=== PATIENT | female | born 1985 | race Caucasian/White ===

== ENCOUNTER → 2018-10-18 | Outpatient (CLI) | payer OTHER, SELFPAY ==
[2014-08-25 03:30] VITALS: BMI 26.8
--- NOTE | 2018-10-18 14:06 | RAD_ITS ---
STUDY: X-RAY - RIGHT FOOT CLINICAL: Female, 33 years old. Pain TECHNIQUE: 3 view(s) of the foot. COMPARISON: None. FINDINGS: There is no evidence of fracture or dislocation. There are no significant degenerative changes. There are no radiodense foreign bodies. Dorsal foot soft tissue swelling is present. RAD/Foot min 3 Views IMPRESSION: No fracture or dislocation. Dorsal foot soft tissue swelling. Electronically Signed: Rai Massey, at 20:31 EDT Tel , Service support ,
== END | disposition home or self-care (01) ==
PROVIDERS: Family Provider Family Medicine; PCP Family Medicine; Referring Provider Family Medicine; Visit Provider Family Medicine
DX: M79.671 Pain in right foot (principal)
CPT/HCPCS: 73630

== ENCOUNTER → 2020-01-15 17:40 | Outpatient (CLI) | payer OTHER, SELFPAY ==
[2019-05-15 13:12] VITALS: BMI 26.8
== END ==
PROVIDERS: PCP Family Medicine; Referring Provider Family Medicine; Visit Provider Family Medicine
DX: B34.9 Viral infection, unspecified (principal)
CPT/HCPCS: 87635; U0003

== ENCOUNTER → 2020-10-21 10:21 | Outpatient (CLI) | payer OTHER, SELFPAY ==
[2019-05-15 13:12] VITALS: BMI 26.8
[2020-10-21 12:28] LABS: Absolute Lymphocyte Count 1.62 X10^3/uL (0.83-4.51); Absolute Neutrophil Count 4.1 X10^3/uL (2.0-7.7); Basophil# 0.03 X10^3/uL; Basophil% 0.5 % (0-1); Eosinophil# 0.15 X10^3/uL; Eosinophils% 2.3 % (0-5); Hematocrit 38.4 % (37-47); Lymphocyte # 1.62 X10^3/ul (0.83-4.51); Lymphocyte % 24.6 % (19-41); Mean Corp Hgb Conc 33.9 g/dL (32-36); Mean Corpuscular Hgb 28.4 pg (27.0-32.0); Mean Corpuscular Volume 83.8 fL (81-99); Mean Platelet Vol. 11.1 fl (6.2-12.0); Monocyte# 0.67 X10^3/uL; Monocyte% 10.2 % (0-10); NRBC Flagged by Analyzer 0 % (0-5); Neutrophil % 62.1 % (47-70); Platelet Count 330 K/mm3 (150-450); RBC Distribution Width CV 12.5 % (11.6-14.6); RBC Distribution Width SD 38.2 fl (35.1-43.9); Red Blood Count 4.58 M/mm3 (4.2-5.4); White Blood Count 6.6 K/mm3 (4.4-11.0)
[2020-10-21 13:02] LABS: ALB/GLOB Ratio 0.8 RATIO (0.9-2.4); AST(SGOT) 17 U/L (15-37); Alanine Aminotransfer ALT/SGPT 20 U/L (13-56); Albumin, Serum 3.7 g/dL (3.2-5.0); Alkaline Phosphatase 79 U/L (45-117); Anion Gap 9 (5-15); BUN 10 mg/dL (7-18); Chloride 106 mmol/L (98-107); Creatinine, Serum 0.71 mg/dL (0.55-1.02); EST Glomerular Filtration Rate 98 mL/min (>60); Est Glom Filt Rate - Afr Amer 118 mL/min (>60); Globulin 4.8 g/dL (2.2-4.2); Glucose 96 mg/dL (74-106); Lipase 96 U/L (73-393); Potassium 3.5 mmol/L (3.5-5.1); Protein, Total 8.5 g/dL (6.4-8.2); Sodium Level 138 mmol/L (136-145)
== END ==
PROVIDERS: PCP Family Medicine; Visit Provider Family Medicine
DX: R10.10 Upper abdominal pain, unspecified (principal)
CPT/HCPCS: 36415; 80053; 83690; 85025

== ENCOUNTER 2021-07-15 13:46 | Outpatient (RCR) | payer OTHER, SELFPAY ==
--- NOTE | 2021-08-30 18:30 | HP.PT.NRP ---
SANDRO HATHAWAY was seen in my office for initial evaluation on 07/15/21. The following Plan of Care was established for this patient: Initial Frequency: 1-2x /Week Initial Duration: 2-4 Weeks Patient/Client Instruction: Educate patient on: Condition, Plan of Care For the Purpose of:: To decrease pain, To increase tolerance to activity/condition/position Therapeutic Exercise to Include: Balance training For the Purpose of:: To increase tolerance to activity/condition/position This patient was last seen in our office 07/15/21. Pertinent comments regarding their Physical therapy will appear below: Pt seen one visit and treated with positional treatment and POC established. she cancelled the next visit and scheduled no further. At this point, it has been over 8 weeks and I will discontinue due to nonattendance. At this point I will be discontinuing this patient from physical therapy. I would be happy to see this patient again in the future if found appropriate by the physician. Thank you! Rajesh Mendez, DPT, OCS, CSCS Balance/Gait/Functional tests - Balance/Special Test Scores Functional Gait Assessment Score: 28 % Disability: 6.6700 Lower Extremity Functional Score: 58
== END 2021-07-15 19:00 | disposition home or self-care (01) ==
LOC: PT 13:46
PROVIDERS: PCP Family Medicine; Referring Provider Nurse Practitioner Family; Visit Provider Nurse Practitioner Family
DX: R42 Dizziness and giddiness (principal)
CPT/HCPCS: 97161

== ENCOUNTER → 2021-08-16 | Outpatient (CLI) | payer OTHER, SELFPAY ==
[2021-08-16 16:23] LABS: Absolute Lymphocyte Count 1.71 X10^3/uL (0.83-4.51); Absolute Neutrophil Count 5.1 X10^3/uL (2.0-7.7); Basophil# 0.04 X10^3/uL; Basophil% 0.5 % (0-1); Eosinophils% 1.3 % (0-5); Lymphocyte # 1.71 X10^3/ul (0.83-4.51); Lymphocyte % 22.1 % (19-41); Mean Corp Hgb Conc 33.3 g/dL (32-36); Mean Corpuscular Hgb 28.1 pg (27.0-32.0); Mean Corpuscular Volume 84.2 fL (81-99); Mean Platelet Vol. 10.6 fl (6.2-12.0); Monocyte# 0.74 X10^3/uL; Monocyte% 9.6 % (0-10); NRBC Flagged by Analyzer 0 % (0-5); Neutrophil # 5.12 X10^3/uL (2.7-7.7); Neutrophil % 66.2 % (47-70); Platelet Count 341 K/mm3 (150-450); RBC Distribution Width SD 36.2 fl (35.1-43.9); Red Blood Count 4.63 M/mm3 (4.2-5.4); White Blood Count 7.7 K/mm3 (4.4-11.0)
[2021-08-16 17:00] LABS: Erythrocyte Sedimentation Rate 34 mm/hr (0-30)
[2021-08-16 17:06] LABS: ALB/GLOB Ratio 0.7 RATIO (0.9-2.4); AST(SGOT) 16 U/L (15-37); Alanine Aminotransfer ALT/SGPT 16 U/L (13-56); Albumin, Serum 3.4 g/dL (3.2-5.0); Alkaline Phosphatase 74 U/L (45-117); Anion Gap 5 (5-15); BUN 9 mg/dL (7-18); BUN/Creat Ratio 11.2 RATIO (10-20); Calcium,Total 9.2 mg/dL (8.5-10.1); Chloride 109 mmol/L (98-107); EST Glomerular Filtration Rate 85 mL/min (>60); Est Glom Filt Rate - Afr Amer 103 mL/min (>60); Globulin 4.9 g/dL (2.2-4.2); Glucose 94 mg/dL (74-106); Potassium 3.4 mmol/L (3.5-5.1); Protein, Total 8.3 g/dL (6.4-8.2); Sodium Level 138 mmol/L (136-145)
[2021-08-18 14:10] LABS: Anti-Centromere B Ab <0.2 AI (0.0-0.9); Anti-Chromatin <0.2 AI (0.0-0.9); Anti-Jo <0.2 AI (0.0-0.9); Anti-Scleroderma-70 AB <0.2 AI (0.0-0.9); RNP Ab 0.2 AI (0.0-0.9); SJOGREN'S Anti-SS-A test < 0.2 AI (0.0-0.9); SJOGREN'S Anti-SS-B test < 0.2 AI (0.0-0.9); Smith Ab <0.2 AI (0.0-0.9)
[2021-08-18 17:07] LABS: Endomysial Antibody IgA Negative (Negative)
[2021-08-19 08:28] LABS: Anti-dsDNA Ab <1 IU/mL (0-9)
[2021-08-19 08:42] LABS: Immunoglobulin A 453 mg/dL (87-352); t-Transglutaminase IgA <2 U/mL (0-3)
== END | disposition home or self-care (01) ==
LOC: LAB 15:40
PROVIDERS: Referring Provider Nurse Practitioner Adult Health; Visit Provider Nurse Practitioner Adult Health
DX: R10.9 Unspecified abdominal pain (principal); R19.8 Other specified symptoms and signs involving the digestive system and abdomen
CPT/HCPCS: 36415; 80053; 82784; 83516; 85025; 85652; 86140; 86225; 86235; 86255

== ENCOUNTER 2021-09-20 10:53 | Day surgery (SDC) | payer OTHER, SELFPAY ==
[2021-09-20] VITALS (7 sets, daily range): BP systolic 86–111; BP diastolic 52–81; PULSE 49–80; RESP 16; TEMP 36.3–36.9; O2SAT 100; BMI 27.6
[2021-09-20 11:30] LABS: Internal QC Validated? YES +Cl - CLEAR BKGD; Pregnancy, Urine Negative Negative
[2021-09-20] MEDS: Lactated Ringers 1,000 ML 15 ML IV (11:39)
--- NOTE | 2021-09-20 12:00 | EGD_PTH ---
PATIENT: SANDRO HATHAWAY LOC: EN U#:[id number] AGE/SX: 36/F ROOM: RE09/20/[address]: Dr. Felipe Burk DO : 1985 BED: DIS: 09/20/2021 SPEC #: [id number] RECD: 09/20/21 14:52 STATUS: JENNIFFER VALERIA #: [id number] YOLANDA: 09/20/21 12:[address]: Felipe Burk DEPT: SURGICAL PATHOLOGY RECD BY: Lona Wilson ENTERED: 09/21/21 12:06 SP TYPE: EGD BIOPSY OT DR: Dr. Forest Nuno MD Tissues: A - Duodenum, NOS B - Pylorus C - Esophagus, NOS D - Gastric mucous membrane E - Ileum, NOS F - COLON BIOPSY Procedures: Special Stain Group II Surgery Specimen Level IV Alcian Blue/PAS (control) HEADER OPERATION: Colonoscopy, EGD ([facility]), with biopsies PRE-OP DIAGNOSIS: Alternating constipation and diarrhea, abdominal pain TISSUE SUBMITTED: A ? Duodenum biopsy, B ? Pylorus ulcer biopsy, C ? Distal esophagus biopsy, D ? Gastric body biopsy, E ? Terminal ileum biopsy, F ? Random colon biopsies MICROSCOPIC DIAGNOSIS A. Duodenum, biopsy: Fragments of duodenal mucosa, no pathologic diagnosis. B. Pylorus ulcer, biopsy: Mild to moderate gastritis. Focal intestinal metaplasia (goblet cell metaplasia). See microscopic description and comment. C. Distal esophagus, biopsy: Fragments of gastroesophageal mucosa with mild chronic inflammation. Intestinal metaplasia (goblet cell metaplasia) is not identified. See comment. D. Gastric body, biopsy: Mild gastritis. See microscopic description and comment. E. Terminal ileum, biopsy: A fragment of small intestinal mucosa, no pathologic diagnosis. F. Colon, random biopsy: Fragments of colonic mucosa, no pathologic diagnosis. SJ:sindhu 09/22/2021 COMMENT B. Alcian blue/PAS stain with matched control is used in the evaluation of the specimen. C. Alcian blue/PAS stain with matched control is used in the evaluation of the specimen. D. The results of immunohistochemistry for Helicobacter pylori will be reported separately ([id number]). MICROSCOPIC DESCRIPTION Slides are reviewed. B. The specimen shows fragments of gastric mucosa with chronic inflammatory cell infiltrates in the lamina propria consisting of lymphocytes and plasma cells, consistent with mild to moderate chronic gastritis. Focal intestinal metaplasia (goblet cell metaplasia) is also noted. D. The specimen shows fragments of gastric mucosa with chronic inflammatory cell infiltrates in the lamina propria consisting of lymphocytes and plasma cells, consistent with mild chronic gastritis. GROSS DESCRIPTION A - Received in fixative is one container labeled with the patient's name and designated duodenum biopsy. The specimen consists of multiple irregular fragments of light howell soft tissue that in aggregate measure 1.5 x 0.5 x 0.1 cm. The specimen is totally submitted in one cassette. B - Received in fixative is one container labeled with the patient's name and designated pylorus ulcer biopsy. The specimen consists of one irregular fragment of light howell soft tissue that measures 0.3 x 0.3 x 0.1 cm. The specimen is totally submitted in one cassette. C - Received in fixative is one container labeled with the patient's name and designated distal esophagus biopsy. The specimen consists of two irregular fragments of light howell soft tissue that in aggregate measure 0.8 x 0.3 x 0.1 cm. The specimen is totally submitted in one cassette. D - Received in fixative is one container labeled with the patient's name and designated gastric body biopsy. The specimen consists of two irregular fragments of light howell soft tissue that in aggregate measure 0.6 x 0.3 x 0.1 cm. The specimen is totally submitted in one cassette. E - Received in fixative is one container labeled with the patient's name and designated terminal ileum biopsy. The specimen consists of one irregular fragment of light howell soft tissue that measures 0.3 x 0.3 x 0.1 cm. The specimen is totally submitted in one cassette. F - Received in fixative is one container labeled with the patient's name and designated random colon biopsy. The specimen consists of multiple irregular fragments of light howell soft tissue that in aggregate measure 1 x 0.8 x 0.1 cm. The specimen is totally submitted in one cassette. / SJ:rg 09/21/2021 TC:3 CPT: 99980 x6, 54328 x2
--- NOTE | 2021-09-20 12:00 | IMM_PTH ---
PATIENT: SANDRO HATHAWAY LOC: [place]AL U#:[id number] AGE/SX: 36/F ROOM: RE09/20/[address]: Dr. Felipe Burk DO : 1985 BED: DIS: 09/20/2021 SPEC #: [id number] RECD: 09/21/21 09:45 STATUS: JENNIFFER RERomeo #: [id number] YOLANDA: 09/20/21 12:[address]: Felipe Burk DEPT: IMMUNOHISTOCHEMISTRY RECD BY: Octavia Maldonado ENTERED: 09/21/21 09:49 SP TYPE: IMMUNO OTHR DR: Dr. Forest Nuno MD Tissues: D - Stomach, NOS Procedures: H Pylori (initial) PHYSICIAN & INSTITUTION [place] [address] SPECIMEN INFORMATION: Tissue Source: D ? Gastric body biopsy Clinical Info: Constipation, diarrhea, abdominal pain Specimen Number: [id number] CPT code: 48990 METHODOLOGY: Deparaffinized sections of prefer/formalin-fixed tissue or PAP/DQ stained slides are incubated with monoclonal/polyclonal antibodies/oligonucleotide probes. Localization is made via biotin free immunoperoxidase method. Appropriate controls are performed and reacted as expected. Results on target cell population are indicated in the following table: RESULTS: ANTIBODY / CLONE RESULT Block D H Pylori (polyclonal) negative These tests were developed and their performance characteristics determined by [facility]. They may not have been cleared or approved by the U.S. Food and Drug Administration. The FDA has determined that such clearance or approval is not necessary. The above immunohistochemical/dualISH markers are ordered and reviewed by the Pathologist. INTERPRETATION: D. Gastric body, biopsy: Negative for Helicobacter pylori organisms. SJ:sindhu 09/22/2021
--- NOTE | 2021-09-20 12:07 | HP.PCM_ITS ---
History and Physical Date of Admission: 09/20/21 SANDRO HATHAWAY, is a 36 F who presents to the office today for IBS with alternating diarrhea and constipation Father of stomach and colon cancer, age 90 shortly after being diagnosed with cancer. Worries about cancer or IBD. Years of GI issues but significantly worse recently. Used to have more upper GI issues, GERD and difficulty swallowing. Occas heartburn now, no meds required. No nausea or vomiting. Currently no dysphagia. Had been prescribed omeprazole yrs ago. Was diagnosed clinically with ulcers after having dark tarry stools, many yrs ago. Past several years she has more bowel issues. Right now alternating every few days between diarrhea and constipation. Now in diarrhea phase, watery w/o any form. Can have multiple bouts of diarrhea per day, has accidents, keeps extra clothes in her car. No nocturnal diarrhea. She has lost 20 lbs in 6 mos unintentionally. Tried FODMAP diet w/ temporary improvement, but there is no predictability with what foods may bother her. But never feels like bowels completely evacuate, even when she has diarrhea. Constipation can last for weeks, can go 2-3 wks w/o BM, needs milk of magnesia, has hard rabbit pellets, has to strain. Benefiber used to be very effective. Hasn't tried dulcolax, Miralax, colace, enema, suppository.? Gets pain across the lower abdomen, bloating--can be every day, occurs at least once a week, lasts all day. No melena or hematochezia. Mostly eating toast, turkey sandwiches, Cheerios, Lactaid milk No prior EGD or colonoscopy. No prior CT. 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 Comorbidities include hx concussion, vertigo, anxiety, bipolar disorder, depression. ROS Const Constitutional: Positive for fatigue and weight change ENT ENT: Positive for difficulty swallowing Gastro GI: Positive for abdominal pain, bloating, change in bowel habits, constipation, cramping, diarrhea, heartburn, difficulty swallowing, Blood in stool, loose stools, Black,tarry stools and nausea/dyspepsia; No belching, change in stool character, coffee ground emesis, feeling full early, excessive flatus, incontinent of stools, Vomiting blood/hematemesis, pain with swallowing, vomiting or other Musc Musculoskeletal: Positive for joint pain, back pain, joint swelling, stiffness and sciatica Skin Skin: No yellowing of the eye or itchy eyes Psych Psychiatric: Positive for anxiety, Positive for depression, Positive for Behavioral Problems and Positive for hyperactivity Endo Endocrine: Positive for fatigue and weight change Aller/Imm Allergy/Immunologic: No itchy eyes Michael/Lymp Hematologic/Lymphatic: No easy bleeding or easy bruising Exam Const General: cooperative, comfortable, well developed and well groomed Eyes General: appearance normal, both eyes and all related structures Neck Neck: normal visual inspection Resp Effort & Inspection: normal respiratory effort GI Inspection: normal to inspection Palpation: soft, no hepatosplenomegaly, no masses and tender in the LUQ Skin General: no rashes or lesions noted Neuro Speech: speech normal Gait: normal gait Extrem General: no pedal edema Psych Mood: euthymic mood Affect: normal affect Quality Reporting Tobacco Screening ([facility]) Smoking Status: Never smoker Assessment and Plan Assessment and Plan (1) Alternating constipation and diarrhea: ?Status:?Acute (2) Abdominal pain: ?Status:?Acute ? ? ? Orders:?Orders: ? Comprehensive Metabolic Profil Today R19.8, R10.9 ? ? CRP Today R19.8, R10.9 ? ? CBC W/Diff, Automated Today R19.8, R10.9 ? ? Erythrocyte Sed Rate Today R19.8, R10.9 ? ? PAULA Comprehensive Panel Today R19.8, R10.9 ? ? Calprotectin, Stool Today R19.8, R10.9 ? ? Stool Lactoferrin/WBC Today R19.8, R10.9 ? ? Celiac Disease Profile Today R19.8, R10.9 ? ? Abdomen/Pelvis WITH Contrast Today R19.8, R10.9 ?Plan - Roseanne Alejandro MOTION PICTURE PROJECTIONIST, MOTION PICTURE PROJECTIONIST-C: 36 yr old female with alternating diarrhea and constipation, lower abdominal pain, LUQ tenderness on exam, weight loss, heartburn. Lower GI symptoms are most bothersome at this time. ?underlying constipation with overflow diarrhea. Samples of Trulance 3 mg qd. Biochemical w/u, stool tests for inflammation. DDx includes IBS, IBD, gastritis, peptic ulcer disease. CT abd pel w/ oral and IV to eval lower abd pain, bowel changes, weight loss. Plan Details Other Medications: ?Discontinued: ? docusate sodium (DOK) ?? Discontinued Reason:? Pt no longer taking 100 mg? PO BID 20 caps 0RF ? ? I have re-examined the patient. There are no clinical changes since date of exam.
--- NOTE | 2021-09-20 13:17 | OP.EGD_ITS ---
Patient Name: Bin Carrasco Procedure Date: 09/20/2021 12:09 PM Date of : 1985 Age: 36 Procedure: Upper GI endoscopy Indications: Epigastric abdominal pain, Dyspepsia, Heartburn Providers: Felipe Burk DO Medicines: Monitored Anesthesia Care Patient Profile: This is a 36 year old female. Refer to note in patient chart for documentation of history and physical. Patient has symptoms of acute epigastric abdominal pain and chronic heartburn. Complications: No immediate complications. Procedure: Pre-Anesthesia Assessment: - Prior to the procedure, a History and Physical was performed, and patient medications and allergies were reviewed. The patient is competent. The risks and benefits of the procedure and the sedation options and risks were discussed with the patient. All questions were answered and informed consent was obtained. Patient identification and proposed procedure were verified by the physician in the pre-procedure area. Mental Status Examination: alert and oriented. Airway Examination: normal oropharyngeal airway and neck mobility. Respiratory Examination: clear to auscultation. CV Examination: normal. Prophylactic Antibiotics: The patient does not require prophylactic antibiotics. Prior Anticoagulants: The patient has taken no previous anticoagulant or antiplatelet agents. ASA Grade Assessment: II - A patient with mild systemic disease. After reviewing the risks and benefits, the patient was deemed in satisfactory condition to undergo the procedure. The anesthesia plan was to use moderate sedation / analgesia (conscious sedation). Immediately prior to administration of medications, the patient was re-assessed for adequacy to receive sedatives. The heart rate, respiratory rate, oxygen saturations, blood pressure, adequacy of pulmonary ventilation, and response to care were monitored throughout the procedure. The physical status of the patient was re-assessed after the procedure. After obtaining informed consent, the endoscope was passed under direct vision. Throughout the procedure, the patient's blood pressure, pulse, and oxygen saturations were monitored continuously. The Colonoscope was introduced through the mouth, and advanced to the second part of duodenum. The upper GI endoscopy was accomplished without difficulty. The patient tolerated the procedure well. Scope In: 12:17:07 PM Scope Out: 12:24:27 PM Total Procedure Duration Time 0 hours 7 minutes 20 seconds Findings: The Z-line was irregular and was found 37 cm from the incisors. Patchy mildly erythematous mucosa without bleeding was found in the gastric body. Biopsies were taken with a cold forceps for histology. Verification of patient identification for the specimen was done. Estimated blood loss was minimal. One non-bleeding cratered gastric ulcer with no stigmata of bleeding was found at the pylorus. The lesion was 3 mm in largest dimension. Biopsies were taken with a cold forceps for histology. Verification of patient identification for the specimen was done. Estimated blood loss was minimal. There was also a 5 mm angioectasia seen in the gastric body. The second portion of the duodenum was normal. Biopsies were taken with a cold forceps for histology. Verification of patient identification for the specimen was done. Estimated blood loss was minimal. A single 5 mm no bleeding angioectasia was found in the gastric fundus. A mild Schatzki ring was found in the middle third of the esophagus. A guidewire was placed and the scope was withdrawn. Dilation was performed with a Savary dilator with no resistance at 36 Fr. Impression: - Z-line irregular, 37 cm from the incisors. - Erythematous mucosa in the gastric body. Biopsied. - Non-bleeding gastric ulcer with no stigmata of bleeding. Biopsied. - Normal second portion of the duodenum. Biopsied. Recommendation: - Written discharge instructions were provided to the patient. - The signs and symptoms of potential delayed complications were discussed with the patient. - Patient has a contact number available for emergencies. - Return to normal activities tomorrow. - Resume previous diet. - Continue present medications. - Await pathology results. Procedure Code(s): --- Professional --- 38546, Esophagogastroduodenoscopy, flexible, transoral; with insertion of guide wire followed by passage of dilator(s) through esophagus over guide wire 76619, 59,51, Esophagogastroduodenoscopy, flexible, transoral; with biopsy, single or multiple CPT copyright 2017 [employer]. All rights reserved. The codes documented in this report are preliminary and upon hr operations advisor review may be revised to meet current compliance requirements. Felipe Burk DO 09/20/2021 12:49:33 PM This report has been signed electronically. Number of Addenda: 1 Note Initiated On: 09/20/2021 12:09 PM Addendum Number: 1 Addendum Date: 12/21/2021 6:31:49 AM MAC was used as sedation for this procedure. Felipe Burk DO 12/21/2021 6:31:53 AM This report has been signed electronically.
--- NOTE | 2021-09-20 13:17 | OP.CCLET_ITS ---
12/21/2021 No Primary Care Physician Re : Upper GI endoscopy procedure for Bin Carrasco Dear Care Physician This procedure was performed on Monday, September 20, 2021. My impressions and recommendations are as follows: Impressions : - Z-line irregular, 37 cm from the incisors. - Erythematous mucosa in the gastric body. Biopsied. - Non-bleeding gastric ulcer with no stigmata of bleeding. Biopsied. - Normal second portion of the duodenum. Biopsied. Recommendations : - Written discharge instructions were provided to the patient. - The signs and symptoms of potential delayed complications were discussed with the patient. - Patient has a contact number available for emergencies. - Return to normal activities tomorrow. - Resume previous diet. - Continue present medications. - Await pathology results. My findings are described in the full procedure note, which is enclosed. If I can be of further assistance, please feel free to contact me at . Sincerely, Felipe Burk, 09/20/2021 12:49:33 PM This report has been signed electronically.
--- NOTE | 2021-09-20 13:17 | OP.CCLET_ITS ---
12/21/2021 No Primary Care Physician Re : Colonoscopy procedure for Bin Carrasco Dear Care Physician This procedure was performed on Monday, September 20, 2021. My impressions and recommendations are as follows: Impressions : - Congested mucosa in the sigmoid colon, in the transverse colon and in the ascending colon. Biopsied. - Congested mucosa in the distal ileum. Biopsied. Recommendations : - Discharge patient to home. - Resume previous diet. - Continue present medications. - Await pathology results. - Repeat colonoscopy is recommended for surveillance. The colonoscopy date will be determined after pathology results from today's exam become available for review. My findings are described in the full procedure note, which is enclosed. If I can be of further assistance, please feel free to contact me at . Sincerely, Felipe Burk, 09/20/2021 12:53:59 PM This report has been signed electronically.
--- NOTE | 2021-09-20 13:17 | OP.COLON_ITS ---
Patient Name: Bin Carrasco Procedure Date: 09/20/2021 12:25 PM Date of : 1985 Age: 36 Procedure: Colonoscopy Indications: Generalized abdominal pain, Family history of colon cancer in a first-degree relative Providers: Felipe Burk DO Medicines: Monitored Anesthesia Care Patient Profile: This is a 36 year old female. Refer to note in patient chart for documentation of history and physical. Patient has symptoms of acute epigastric abdominal pain and chronic heartburn. Last Colonoscopy: none. The patient's first colonoscopy is today. Complications: No immediate complications. Procedure: Pre-Anesthesia Assessment: - Prior to the procedure, a History and Physical was performed, and patient medications and allergies were reviewed. The patient is competent. The risks and benefits of the procedure and the sedation options and risks were discussed with the patient. All questions were answered and informed consent was obtained. Patient identification and proposed procedure were verified by the physician in the pre-procedure area. Mental Status Examination: alert and oriented. Airway Examination: normal oropharyngeal airway and neck mobility. Respiratory Examination: clear to auscultation. CV Examination: normal. Prophylactic Antibiotics: The patient does not require prophylactic antibiotics. Prior Anticoagulants: The patient has taken no previous anticoagulant or antiplatelet agents. ASA Grade Assessment: II - A patient with mild systemic disease. After reviewing the risks and benefits, the patient was deemed in satisfactory condition to undergo the procedure. The anesthesia plan was to use moderate sedation / analgesia (conscious sedation). Immediately prior to administration of medications, the patient was re-assessed for adequacy to receive sedatives. The heart rate, respiratory rate, oxygen saturations, blood pressure, adequacy of pulmonary ventilation, and response to care were monitored throughout the procedure. The physical status of the patient was re-assessed after the procedure. After I obtained informed consent, the scope was passed under direct vision. Throughout the procedure, the patient's blood pressure, pulse, and oxygen saturations were monitored continuously. The Colonoscope was introduced through the anus and advanced to the terminal ileum. The colonoscopy was performed without difficulty. The patient tolerated the procedure well. The quality of the bowel preparation was adequate. Scope In: 12:26:48 PM Scope Withdrawal Time 0 hours 11 minutes 27 seconds Scope Out: 12:41:06 PM Total Procedure Duration Time 0 hours 14 minutes 18 seconds Findings: The perianal and digital rectal examinations were normal. An area of mildly congested mucosa was found in the sigmoid colon, in the transverse colon and in the ascending colon. Biopsies were taken with a cold forceps for histology. Verification of patient identification for the specimen was done. Estimated blood loss was minimal. A patchy area of the distal ileum was congested. Biopsies were taken with a cold forceps for histology. Verification of patient identification for the specimen was done. Estimated blood loss was minimal. Impression: - Congested mucosa in the sigmoid colon, in the transverse colon and in the ascending colon. Biopsied. - Congested mucosa in the distal ileum. Biopsied. Recommendation: - Discharge patient to home. - Resume previous diet. - Continue present medications. - Await pathology results. - Repeat colonoscopy is recommended for surveillance. The colonoscopy date will be determined after pathology results from today's exam become available for review. Procedure Code(s): --- Professional --- 12069, Colonoscopy, flexible; with biopsy, single or multiple CPT copyright 2017 [employer]. All rights reserved. The codes documented in this report are preliminary and upon petroleum engineering teacher review may be revised to meet current compliance requirements. Felipe Burk DO 09/20/2021 12:53:59 PM This report has been signed electronically. Number of Addenda: 1 Note Initiated On: 09/20/2021 12:25 PM Addendum Number: 1 Addendum Date: 12/21/2021 6:32:00 AM MAC was used as sedation for this procedure. Felipe Burk DO 12/21/2021 6:32:04 AM This report has been signed electronically.
== END 2021-09-20 13:28 | disposition home or self-care (01) ==
LOC: EN 10:54 → AC 10:55
PROVIDERS: Anesthesiology; PCP Family Medicine; Referring Provider Family Medicine; Visit Provider Internal Medicine Gastroenterology
PROC: 0DJD8ZZ Inspection of Lower Intestinal Tract, Via Natural or Artificial Opening Endoscopic (ICD-10-PCS; CPT 45378; principal; 2021-09-20 11:55)
DX: K22.2 Esophageal obstruction (principal); F31.9 Bipolar disorder, unspecified; K29.50 Unspecified chronic gastritis without bleeding; K63.89 Other specified diseases of intestine; K31.89 Other diseases of stomach and duodenum; K25.9 Gastric ulcer, unspecified as acute or chronic, without hemorrhage or perforation; F41.9 Anxiety disorder, unspecified; K21.9 Gastro-esophageal reflux disease without esophagitis; G47.00 Insomnia, unspecified; K58.9 Irritable bowel syndrome, unspecified; Z79.899 Other long term (current) drug therapy; Z80.0 Family history of malignant neoplasm of digestive organs
CPT/HCPCS: 45380; 43239; 43248; 81025; 88305; 88313; 88342; J7120; J2405

== ENCOUNTER 2023-04-20 14:07 | Emergency (ER) | payer OTHER, SELFPAY ==
[2023-04-20 14:07] VITALS: BP 123/77; PULSE 85; RESP 16; TEMP 36.4; O2SAT 98; BMI 30.7
--- NOTE | 2023-04-20 14:37 | CT_ITS ---
STUDY: CT BRAIN WITHOUT CONTRAST REASON FOR EXAM: Female, 38 years old. Head trauma RADIATION DOSAGE (If Supplied By Facility): CTDIvol = ( 44.99 ) mGy, DLP = ( 762.36 ) mGycm TECHNIQUE: Transaxial CT imaging of the brain was performed without administration of intravenous contrast material. Individualized dose optimization techniques were used for this CT. COMPARISON: No relevant priors. FINDINGS: Mild degree of the soft tissue swelling overlying the left orbit. Normal calvarium. Normal size ventricles and extra-axial spaces for the patient''s age. Normal white matter tracts of the cerebral hemispheres. Normal basal ganglia and thalami. Normal brainstem. Normal cerebellum. There is no intracranial hemorrhage. There are no findings of an acute ischemic infarction. Minimal mucosal thickening along the lateral wall of the right maxillary sinus. CT/Brain/Head without Contrast IMPRESSION: Normal unenhanced CT scan of the brain. Mild degree of soft tissue swelling overlying the left orbit. Mucosal thickening along the lateral wall of the right maxillary sinus Electronically Signed: Kris Jones MD at 15:05 EST ,
--- NOTE | 2023-04-20 14:37 | CT_ITS ---
STUDY: CT FACIAL BONES WITHOUT CONTRAST REASON FOR EXAM: Female, 38 years old. Kicked in face by horse bruise left eye RADIATION DOSAGE (If Supplied By Facility): CTDIvol = ( 29.38 ) mGy, DLP = ( 525.42 ) mGycm TECHNIQUE: The patient was scanned in a multi detector CT scanner. Sagittal and coronal images were reconstructed. Individualized dose optimization techniques were used for this CT. COMPARISON: None. FINDINGS: Minimal degree of soft tissue swelling overlying the left orbit. Normal orbital reina and orbital contents. Mild degree of the nasal septal deviation towards the right side of the midline. There is hypertrophy of the inferior turbinate in the left nasal fossa. Normal facial bones. There is no demonstrated fracture. Findings suggestive of a small polyp or retention cyst at the base of the left maxillary sinus. Mild mucosal thickening at the base of the right maxillary sinus. CT/Sinus/Facial Bone IMPRESSION: No facial fracture is seen. Mucosal thickening of the maxillary sinuses with the nasal septal deviation towards the right side of the midline. Mild degree of soft tissue swelling overlying the left orbital region. Electronically Signed: Kris Jones MD at 15:07 EST ,
--- NOTE | 2023-04-20 14:48 | EX.ED.GENINJ ---
HPI History of Present Illness Chief Complaint: Head Injury Detail of Chief Complaint: Kicked in the face and left arm by her horse. Informant: patient Onset/Context/Timing Onset: Yesterday Mechanism/Context: Blunt Injury Location of pain/injuries: Left shoulder Quality of Pain: Dull and Aching Current Severity: Moderate Maximum Severity: Moderate Associated Symptoms Associated Symptoms: Positive for Loss of consciousness; Negative for Parasthesias, Weakness, Loss of function, Inability to ambulate or Amnesia Length of loss of consciousness: Unknown Narrative Narrative: 38-year-old female was putting her horse in the past yesterday when the horse kicked her in the left cheek below her left eye and left shoulder. She believes she stumbled backwards and lost consciousness for a brief period of time. She says she is having some dizziness with it. Discomfort in her left shoulder and left cheek. She has had a prior concussion before. She is on no blood thinners. She has not been vomiting. Prior similar symptoms: Yes Recent Illness/Hospitalization: No PFSH PFSH Medical History Acid reflux Alcohol use Alternating constipation and diarrhea Anxiety Bipolar disorder Black tarry stools Cough Depression Dysphagia History of ulceration Hx of Hypotension IBS (irritable bowel syndrome) Insomnia Loss of consciousness Migraine headache Non-smoker Post concussion syndrome Shortness of breath on exertion Stomach ulcer Vertigo Wears contact lenses Weight loss Home Medications trazodone 50 mg tablet 125 mg PO QHS 05/15/19 [History Last Taken Unknown] quetiapine 25 mg tablet 25 mg PO QHS 07/13/21 [History Last Taken Unknown] etonogestrel 0.12 mg-ethinyl estradiol 0.015 mg/24 hr vaginal ring (NuvaRing) 0.12 vag ring vaginal DAILY 09/16/21 [History Last Taken Unknown] omeprazole 40 mg capsule,delayed release 40 mg PO BID #180 caps 10/24/21 [Rx Last Taken Unknown] sucralfate 1 gram tablet 1 g PO QAC stomach ulcer #90 tabs 10/24/21 [Rx Last Taken Unknown] plecanatide 3 mg tablet (Trulance) 3 mg PO DAILY #90 tabs 03/10/22 [Rx Last Taken Unknown] benzonatate 200 mg capsule 200 mg PO TID PRN cough #20 caps 02/28/23 [Rx Last Taken Unknown] Allergy/AdvReac Type Severity Reaction Status Date / Time No Known Allergies Allergy Verified 04/20/23 14:07 Family History Mother Breast cancer Anemia Anxiety Hyperlipidemia Arthritis Hypertension Father Diabetes Colon cancer Hyperlipidemia Arthritis Hypertension Grandmother Anemia Arthritis Cancer Hypertension Social History Smoking Status: Never smoker alcohol intake: current ROS ROS ED ROS Narrative No recent illness. Review of Systems ROS Unobtainable: Denies due to encephalopathy Constitutional Constitutional ED: Denies chills or fever(s) Eyes Eyes: Denies blurry vision ENT ENT ED: Denies ear pain, rhinorrhea or sore throat Cardiovascular Cardiovascular: Denies chest pain, palpitations or racing heartbeat Respiratory/Chest Respiratory/Chest: Denies cough, dyspnea or dyspnea on exertion Gastrointestinal Gastrointestinal: Denies abdominal pain, constipation or diarrhea Genitourinary Genitourinary ED: Denies dysuria or hematuria Musculoskeletal Musculoskeletal: Denies arthralgias, back pain, myalgias or neck pain Integumentary Denies abscess, Abrasions or rash Neurologic Neurologic: Reports headache(s) Psychiatric Psychiatric: Denies anxiety or depression Endocrine Endocrinology: Denies cold intolerance Hematologic/Lymphatic Hematologic/Lymphatic: Denies easy bleeding Allergic/Immunologic Allergic/Immunologic ED: Denies mouth swelling EXAM Physical Exam Narrative Exam Narrative: 38-year-old female vital signs stable afebrile. HEENT exam pupils are round reactive light his motions are intact. She has a bruise to her left zygomatic arch where she was kicked by a horse. Left TM unremarkable. Jaw and teeth unremarkable able to open close her jaw. No trismus. Neck nontender full range of motion. Back and spine nontender. Lungs clear to auscultation bilaterally. Heart regular rate rhythm no murmur. Chest wall and ribs nontender. Abdomen soft nontender. Pelvic girdle intact. Moving all 4 extremities. Normal strength and sensation. Normal range of motion. She is of large bruise to her left anterior shoulder and proximal humerus. However she is full range of motion of the shoulder. Elbow, forearm, wrist and hand are nontender neurovascular intact. Normal radial pulse. 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 Right upper and both lower extremities are unremarkable. Neurologically she is awake and alert with no focal motor deficits. Const Vital Signs: 04/20/23 14:07 Temperature 97.6 F L Temperature Source Temporal Pulse Rate 85 Respiratory Rate 16 Blood Pressure 123/77 H Blood Pressure Mean 92 Pulse Ox 98 Oxygen Delivery Method Room Air Positive well nourished and well developed; Negative for cachectic, contractures or unkempt General Appearance ED: well developed and NAD; Negative for unkempt, cachectic or contractures Nutritional Appearance: Negative for cachectic HEENT Reports TM's clear HEENT Narrative: Bruising below her left eye on cheek. Mildly tender. trauma and tenderness; Negative for atraumatic Tympanic Membrane ED: Yes TM's clear Eyes PERRL and EOMs intact bilaterally Neck full ROM General: Negative for tenderness or other Chest Wall inspection of chest normal and palpation of chest normal Resp normal respiratory effort and clear to auscultation bilaterally Effort and Inspection: Negative for pain with movement Auscultation: Negative for rales, rhonchi or wheezes Cardio regular rhythm, S1 normal heart sound, S2 normal heart sound and no murmurs Jugular Venous Distention: Negative for other Palpation: Negative for palpable S3 Rate: regular rate; Negative for bradycardia or tachycardic Rhythm: Negative for abnormal rhythm GI normal to inspection, nondistended, normoactive bowel sounds, non-tender, non-distended and no masses Inspection: Negative for abdominal distention Auscultation: normoactive bowel sounds Palpation: soft; Negative for tender or guarding Bladder / Kidney Exam: No other Back/Spine normal to inspection and no thoracic nor lumbar tenderness General Back: Negative for CVA tenderness Thoracic Spine / Upper Back: Negative for thoracic spinal tenderness Extremity normal to inspection and full ROM Extremity Narrative: Bruise left shoulder proximal humerus. Full range of motion. No deformity. General Extremety ED: Yes tenderness; Negative for deformity or edema General Extremity: Negative for deformity or edema Neuro oriented x3, CN's II-XII intact bilaterally, moves all extremities, no focal motor deficits and no sensory deficits noted Wilfrido Coma Scale: document GCS findings Spontaneous Obeys Commands Oriented 15 Sensorium / Orientation: alert, oriented to person, oriented to place and oriented to time; Negative for orientation impaired or lethargic Motor Exam: strength 5/5 throughout; Negative for strength abnormal or muscle tone abnormal Psych mental status grossly normal and thought process normal Appearance: Negative for unkempt Attitude: No agitated Mood & Affect: Negative for depressed, anxious or tearful Skin no rashes or lesions noted, no wounds, skin turgor normal and no jaundice General Skin Exam: Negative for other Rashes: No rashes noted Trauma: Negative for abrasion Image ED - Body Diagram Man: 1. Left shoulder contusion. Bruising. Full range of motion. No deformity. MDM MDM MDM Narrative Medical decision making narrative: 38-year-old kicked in the face and left shoulder by a horse. CAT scan of the brain and facial bones to rule out intracranial injury and/or fracture. Left shoulder x-ray to rule out fracture. Repeat exam at 3:43 PM patient is doing well. Ice to all sore areas specifically her face and shoulder. Tylenol for pain. Motrin for pain and inflammation. Head injury instructions. Follow-up if not improving. Radiography Diagnostic Testing: Clinical Impression(s) from Imaging Studies Brain CT 04/20/23 14:37 IMPRESSION: Normal unenhanced CT scan of the brain. Mild degree of soft tissue swelling overlying the left orbit. Mucosal thickening along the lateral wall of the right maxillary sinus Electronically Signed: Kris Jones MD at 15:05 EST , Facial/Sinus 04/20/23 14:37 IMPRESSION: No facial fracture is seen. Mucosal thickening of the maxillary sinuses with the nasal septal deviation towards the right side of the midline. Mild degree of soft tissue swelling overlying the left orbital region. Electronically Signed: Kris Jones MD at 15:07 EST , Shoulder X-Ray 04/20/23 14:55 IMPRESSION: Minimal widening of the left acromioclavicular joint suggestive of a type I AC joint separation. Electronically Signed: Kris Jones MD at 15:08 EST , Left shoulder x-ray, 3 views, interpreted by myself and the radiologist. Clinically she has no signs of an AC separation or tenderness I do not think she has 1. The shoulder itself the humerus excetra there is no signs of fracture or dislocation. CAT scan of the face and brain shows soft tissue swelling but no fracture. No intracranial bleed. Discharge Plan Triage Chief Complaint: Head Injury ED Provider: Augustin Forman Dx/Rx/DC Orders Clinical Impression: Concussion, Closed head injury, Contusion of left shoulder Instructions: ED Concussion, ED Contusion, Upper Extremity Prescriptions: No Action quetiapine 25 mg tablet 25 mg PO QHS omeprazole 40 mg capsule,delayed release(DR/EC) 40 mg PO BID Qty: 180 0RF sucralfate 1 gram tablet 1 g PO QAC Qty: 90 0RF benzonatate 200 mg capsule 200 mg PO TID PRN (Reason: cough) Qty: 20 0RF trazodone 50 mg tablet 125 mg PO QHS Patient Comments: SLEEP etonogestrel-ethinyl estradiol [NuvaRing] 0.12-0.015 mg/24 hr Ring 0.12 vag ring VAGINAL DAILY Trulance 3 mg tablet 3 mg PO DAILY Qty: 90 11RF Primary Care Provider: Diana Bhat Referrals: Forest Nuno MD [Non-Staff] - Diana Bhat, [Primary Care Provider] - 1 Week if not improving Activity Restrictions/Additional Instructions: CAT scan of your brain and facial bones showed no fracture nor bleed. Ice to the soft tissue swelling of your face. Ice to your left shoulder. No broken bones or dislocations. Motrin for pain and swelling and Tylenol for pain. Follow-up with your doctor if not improving. Anytime you have a head injury or concussion you may have intermittent headaches, increasing sleep and trouble sleeping and nausea. This should all progressively improve over the next several weeks. Disposition Disposition: Home, Self Care
--- NOTE | 2023-04-20 14:55 | RAD_ITS ---
STUDY: X-RAY - LEFT SHOULDER REASON FOR EXAM: Female, 38 years old. Kicked by horse left shoulder TECHNIQUE: 4 view(s) of the shoulder. COMPARISON: None. FINDINGS: Normal glenohumeral articulation. There is minimal widening of the AC joint suggesting a Type I acromioclavicular joint separation. Normal acromion. Normal humeral head and visualized proximal humerus. The soft tissue structures are unremarkable. Normal visualized pulmonary apex. RAD/Shoulder min 2 Views IMPRESSION: Minimal widening of the left acromioclavicular joint suggestive of a type I AC joint separation. Electronically Signed: Kris Jones MD at 15:08 EST ,
== END 2023-04-20 15:55 | disposition home or self-care (01) ==
PROVIDERS: Emergency Provider Emergency Medicine; PCP Family Medicine; Visit Provider Emergency Medicine
DX: S06.0X0A Concussion without loss of consciousness, initial encounter (principal); S40.012A Contusion of left shoulder, initial encounter; W55.12XA Struck by horse, initial encounter
CPT/HCPCS: 70450; 70486; 73030; 99282

== ENCOUNTER 2023-10-17 06:00 | Day surgery (SDC) | payer OTHER, SELFPAY ==
[2023-10-17] VITALS (8 sets, daily range): BP systolic 93–142; BP diastolic 58–71; PULSE 62–95; RESP 16–17; TEMP 36.6–37; O2SAT 96–100; BMI 30.2
[2023-10-17 06:24] LABS: Internal QC Validated? YES +Cl - CLEAR BKGD; Pregnancy, Urine Negative Negative
[2023-10-17] MEDS: Lactated Ringers 1,000 ML 15 ML IV (06:27)
--- NOTE | 2023-10-17 06:38 | PRE.ANES_ITS ---
ASA Classification* ASA Classification ASA Classification: 2 Assessment & Plan Anesthesia* Anesthesia Assessment Anesthesia Assessment: Discussed sedation and/or anesthesia options, risks, benefits, and alternatives with patient/parents/legal guardian/POA. Questions invited. The patient/parents/legal guardian/POA seems to understand and agrees to proceed with anesthesia plan. Reviewed the physical assessment, medical history, allergy history and patient home medications list prior to surgery/procedure/anesthetic and documented any changes. Performed airway and anesthesia risk assessments. Anesthesia Type Anesthesia Type: MAC History Source History Obtained from:: Patient and Chart Anesthesia Focused Assessment* Temperature: 98.6 F Pulse Rate: 95 Blood Pressure: 142/71 Respiratory Rate: 17 Pulse Ox: 100 Oxygen Delivery Method: Room Air Airway Assessment Mouth opens: 2 cm Mallampati Score: IV Teeth Condition: Chipped/Broken (Patient has chipped molars on the left upper and lower.) Neck Range of motion (ROM): Full ROM Focused Labs Anesthesia Preop lab: CBC WBC 7.7 K/mm3 (4.4-11.0) 08/16/21 15:54 RBC 4.63 M/mm3 (4.2-5.4) 08/16/21 15:54 Hgb 13.0 g/dL (12.0-15.0) 08/16/21 15:54 Hct 39.0 % (37-47) 08/16/21 15:54 Plt Count 341 K/mm3 (150-450) 08/16/21 15:54 CHEMISTRY Potassium 3.4 mmol/L (3.5-5.1) L 08/16/21 15:54 Sodium 138 mmol/L (136-145) 08/16/21 15:54 BUN 9 mg/dL (7-18) 08/16/21 15:54 Creatinine 0.80 mg/dL (0.55-1.02) 08/16/21 15:54 Glucose 94 mg/dL (74-106) 08/16/21 15:54 COAG PT 13.8 SECONDS (11.7-14.9) 08/24/14 16:15 Urine Test Negative Negative 10/17/23 06:15 Pre-Assessment Diagnosis/Proposed Procedure Planned Operative Procedure(s): EGD Anesthesia History Anesthesia History - communications manager: Anesthesia History - communications manager Hx Hospitalization No 10/16/23 12:15 Any Problems With Anesthesia Yes: N,V 10/16/23 12:15 Cholinesterase deficiency No 10/16/23 12:15 You/Your Family Experience No 10/16/23 12:15 fever (hyperthermia) with Relationship Recent Exposure to Contagious No 10/17/23 06:27 Disease Does patient have nerve No 10/16/23 12:15 stimulator Patient instructed to have device shut off --Does patient have Pacemaker No 10/17/23 06:27 or ICD? When Was Last Pacemaker Check QUESTION #4 FULL TEXT: You/Your Family Experience fever (hyperthermia) with Anesthesia Last Oral Intake Last Oral intake: Last Oral Intake NPO since 19:00 10/17/23 06:27 Meds taken in AM with sips of No 10/17/23 06:27 water? Meds patient instructed to take am of surgery PONV PONV - communications manager: PONV - communications manager Female Yes 10/16/23 12:15 HX of Motion Sickness Yes 10/16/23 12:15 HX of N/V After Surgery Yes 10/16/23 12:15 Non-Smoker Yes 10/16/23 12:15 Duration of Surgery greater No 10/16/23 12:15 than 60 minutes Number of Risk Factors 4 10/16/23 12:15 PONV Score Severe Risk 10/16/23 12:15 Height & Weight Height & Weight: Anesthesia: Height & Weight Height 5 ft 4 in 10/17/23 06:27 Weight: 80 kg 10/17/23 06:27 Body Mass Index (BMI) 30.2 10/17/23 06:27 Respiratory Assessment Respiratory Assessment - communications manager: Respiratory Tract Infection Hx - communications manager Hx Respiratory Tract Infection No 10/16/23 12:15 STOP Sleep Apnea STOP Sleep Apnea - communications manager: STOP Sleep Apnea - communications manager Hx Hypertension No 10/16/23 12:15 Hx Sleep Apnea No 10/16/23 12:15 CPAP No 10/16/23 12:15 BIPAP No 10/16/23 12:15 Do you snore loudly (louder No 10/16/23 12:15 than talking or can be heard Do you often feel tired/ No 10/16/23 12:15 fatigued/ sleepy during daytime? Has anyone observed you stop No 10/16/23 12:15 breathing during sleep? STOP Results Negative 10/16/23 12:15 QUESTION #5 FULL TEXT : Do you snore loudly (louder than talking or can be heard through closed doors)? Tobacco Use History Tobacco Use History - communications manager: Tobacco Use History - communications manager Tobacco Use Smoking Status Never smoker 10/16/23 12:15 Hx Tobacco Use No 10/16/23 12:15 Years Smoking Packs Smoked per Day Smoking Cessation Date was within the last 15 years Hx Smoking Cessation Date Hx Smoking Cessation Counseling Hematologic Medial History Hematologic Hx - communications manager: Hematologic Medical Hx - slitter operator Hx of Blood Transfusion No 10/16/23 12:15 Hx of Transfusion in last 3 No 10/16/23 12:15 Months Date of Last Transfusion (if within last 3 months) Ever experience any problems No 10/16/23 12:15 with transfusion(s)? Specify any problems Hx of Preganancy in last 3 No 10/16/23 12:15 Months Nurse Filling Out Transfusion VCHRISTIN 10/16/23 12:15 & Questions: Date: 10/16/23 10/16/23 12:15 Time: 12:16 10/16/23 12:15 Patient unable to answer at this time (ie. confused, unrespo /Reproduction History /Reproductive History - communications manager: /Reproductive Hx- communications manager Hx Now No 10/16/23 12:15 Gestational Age (in weeks): EDC: Hx Hx Para Hx Section SAB No 10/16/23 12:15 Active Medications Active Medications: Current Medications Generic Name Dose Route Start Last Admin Trade Name Freq PRN Reason Stop Dose Admin Lactated Ringer's 1,000 mls @ 15 mls/hr 10/17/23 06:15 10/17/23 06:27 IV 15 mls/hr .Q48H GREGORIO Administration PFSH Medical History Anemia Gastric reflux History of echocardiogram Wears contact lenses Alcohol use Migraine headache Loss of consciousness History of ulceration Non-smoker Shortness of breath on exertion Hypotension Hx of Post concussion syndrome Abdominal pain Vertigo Bipolar disorder Insomnia IBS (irritable bowel syndrome) Stomach ulcer Acid reflux Anxiety Depression Home Medications ?Medication ?Instructions ?Recorded ?Last Taken ?Type trazodone 50 mg tablet 125 mg PO QHS 05/15/19 10/16/23 History etonogestrel 0.12 mg-ethinyl 0.12 vag ring vaginal DAILY 09/16/21 10/16/23 History estradiol 0.015 mg/24 hr vaginal ring (NuvaRing) famotidine 20 mg tablet 20 mg PO BID #60 tabs 05/10/23 10/16/23 Rx plecanatide 3 mg tablet (Trulance) 3 mg PO DAILY #90 tabs 05/10/23 10/16/23 Rx propranolol 10 mg tablet 10 mg PO BID PRN PRN anxiety 07/27/23 10/16/23 History Allergy/AdvReac Type Severity Reaction Status Date / Time No Known Allergies Allergy Verified 10/17/23 06:26 Family History Mother Breast cancer Anemia Anxiety Hyperlipidemia Arthritis Hypertension Father Diabetes Colon cancer Hyperlipidemia Arthritis Hypertension Grandmother Anemia Arthritis Cancer Hypertension Surgical History History of esophagogastroduodenoscopy (EGD) Social History Smoking Status: Never smoker alcohol intake: current Review of Systems (Anesthesia) ROS Narrative System reviewed and no additional complaints, except as documented.
--- NOTE | 2023-10-17 07:00 | EGD_PTH ---
PATIENT: SANDRO HATHAWAY LOC: EN U#:[id number] AGE/SX: 38/F ROOM: RE10/17/[address]: Dr. Felipe Burk DO : 1985 BED: DIS: 10/17/2023 SPEC #: [id number] RECD: 10/17/23 10:43 STATUS: JENNIFFER VALERIA #: [id number] YOLANDA: 10/17/23 07:[address]: Felipe Burk DEPT: SURGICAL PATHOLOGY RECD BY: Lona Wilson ENTERED: 10/17/23 11:45 SP TYPE: EGD BIOPSY LISSETTE DR: Mei Kathleen MD Tissues: Duodenum, NOS Procedures: Surgery Specimen Level IV HEADER OPERATION: EGD biopsy PRE-OP DIAGNOSIS: Acid reflux, stomach ulcer TISSUE SUBMITTED: Duodenum biopsy MICROSCOPIC DIAGNOSIS Duodenum, biopsy: No pathologic change. JUVENCIO/ 10/18/2023 MICROSCOPIC DESCRIPTION Slides are reviewed. GROSS DESCRIPTION Received in fixative is one container labeled with the patient's name and designated Duodenum biopsy. The specimen consists of multiple irregular fragments of light howell soft tissue that in aggregate measure 1.2 x 0.5 x 0.1 cm. The specimen is totally submitted in one cassette. JUVENCIO/ 10/17/2023 TC:5 CPT:66315
--- NOTE | 2023-10-17 07:09 | PCM.HP.BLA ---
History and Physical Date of Admission: 10/17/23 SANDRO HATHAWAY, is a 38 F who presents to the office today for Prior workup: ? CT abd/pel 6.8.15 mild right hydronephrosis; small hiatal hernia; small fundic tail diverticulum *BGI established 08.16.21 father diagnosed with stomach cancer approximately age 90 and . Current symptoms constipation alternating with watery loose stools; constant incomplete evacuation. Unintentional weight loss of 20lbs in the last 6 months. FODMAP diet somewhat helpful. Unable to identify trigger. ? Biochemical 08.16.21 CBC, CMP, CRP, PAULA comp, celiac, IgA (H453) without pertinent abnormality ? ESR H34, CRP H17.7 ? EGD/colonoscopy 09.20.21 EGD Raul ring, Savary 34F; gastritis; non-bleeding gastric ulcer; gastric angioectasia; pylorus metaplasia +. ? Colonoscopy congested mucosa. No path changes OV 8.8.22 PPI increase to BID, start sucralfate. Trulance samples effective, poor insurance coverage; Start Linzess 145 mcg samples. OV 10.3.22 Trulance most effective, continue. OV 2.22.24 LUQ pain with hunger and particular food triggers and indigestion. Otherwise feels she is doing well with use of Trulance with BM each day and complete evacuation. Omeprazole is being taken PRN as opposed to routine. ROS Const Constitutional: Positive for fatigue ENT ENT: No difficulty swallowing Gastro GI: Positive for abdominal pain, bloating, heartburn and excessive flatus; No belching, change in bowel habits, change in stool character, coffee ground emesis, constipation, cramping, diarrhea, difficulty swallowing, feeling full early, incontinent of stools, Vomiting blood/hematemesis, Blood in stool, loose stools, Black,tarry stools, nausea/dyspepsia, pain with swallowing, vomiting or other Musc Musculoskeletal: Positive for joint swelling and stiffness; No joint pain Skin Skin: No yellowing of the eye or itchy eyes Psych Psychiatric: Positive for anxiety, Positive for depression and Positive for inattentiveness Endo Endocrine: Positive for fatigue Aller/Imm Allergy/Immunologic: No itchy eyes Michael/Lymp Hematologic/Lymphatic: No easy bleeding or easy bruising Exam Const General: cooperative and healthy appearing Orientation: alert, awake and oriented x3 Quality Reporting Tobacco Screening ([facility] 138) Smoking Status: Never smoker Assessment and Plan Assessment and Plan (1) Irritable bowel syndrome with constipation: Status: Chronic Plan: continue trulance which is very effective for her (2) Stomach ulcer: Status: Chronic Plan: schedule f/u EGD, follow-up in office 2 weeks after that (3) Acid reflux: Status: Inactive Plan: Since omeprazole is not covered by her insurance we will put her on famotidine 20 mg p.o. twice daily Medications: New famotidine 20 mg PO BID 60 tabs 10RF Discontinued omeprazole Discontinued Reason: Order Completed 40 mg PO BID 180 caps 0RF sucralfate Discontinued Reason: Order Completed 1 g PO QAC 90 tabs 0RF stomach ulcer I have examined the patient and the H&P has been reviewed. There are no clinical changes since date of exam.
--- NOTE | 2023-10-17 07:30 | OP.EGD_ITS ---
Patient Name: Bin Carrasco Procedure Date: 10/17/2023 7:12 AM Date of : 1985 Age: 38 Procedure: Upper GI endoscopy Indications: Peptic ulcer Providers: Felipe Burk DO Patient Profile: This is a 38 year old female. Refer to note in patient chart for documentation of history and physical. Patient has symptoms of chronic epigastric abdominal pain. Complications: No immediate complications. Procedure: Pre-Anesthesia Assessment: - Prior to the procedure, a History and Physical was performed, and patient medications and allergies were reviewed. The risks and benefits of the procedure and the sedation options and risks were discussed with the patient. All questions were answered and informed consent was obtained. Patient identification and proposed procedure were verified by the physician in the pre-procedure area. Mental Status Examination: alert and oriented. Airway Examination: normal oropharyngeal airway and neck mobility. Respiratory Examination: clear to auscultation. CV Examination: normal. Prophylactic Antibiotics: The patient does not require prophylactic antibiotics. Prior Anticoagulants: The patient has taken no anticoagulant or antiplatelet agents. ASA Grade Assessment: II - A patient with mild systemic disease. After reviewing the risks and benefits, the patient was deemed in satisfactory condition to undergo the procedure. The anesthesia plan was to use monitored anesthesia care (MAC). Immediately prior to administration of medications, the patient was re-assessed for adequacy to receive sedatives. The heart rate, respiratory rate, oxygen saturations, blood pressure, adequacy of pulmonary ventilation, and response to care were monitored throughout the procedure. The physical status of the patient was re-assessed after the procedure. After obtaining informed consent, the endoscope was passed under direct vision. Throughout the procedure, the patient's blood pressure, pulse, and oxygen saturations were monitored continuously. The Endoscope was introduced through the mouth, and advanced to the second part of duodenum. The upper GI endoscopy was accomplished without difficulty. The patient tolerated the procedure well. Scope In: 7:18:32 AM Scope Out: 7:21:44 AM Total Procedure Duration Time 0 hours 3 minutes 12 seconds Findings: The examined esophagus was normal. A 5 mm non-bleeding diverticulum was found in the gastric fundus. No gross lesions were noted in the entire examined stomach. Patchy mild inflammation characterized by erosions and erythema was found in the duodenal bulb and in the first portion of the duodenum. Biopsies were taken with a cold forceps for histology. Verification of patient identification for the specimen was done. Estimated blood loss was minimal. Impression: - Normal esophagus. - Gastric diverticulum. - No gross lesions in the entire stomach. - Chronic duodenitis. Biopsied. Recommendation: - Discharge patient to home. - Resume previous diet. - Continue present medications. - Await pathology results. Procedure Code(s): --- Professional --- 51159, Esophagogastroduodenoscopy, flexible, transoral; with biopsy, single or multiple CPT copyright 2021 [employer]. All rights reserved. The codes documented in this report are preliminary and upon capacity planning manager review may be revised to meet current compliance requirements. Felipe Burk DO 10/17/2023 7:29:40 AM This report has been signed electronically. Number of Addenda: 0 Note Initiated On: 10/17/2023 7:12 AM
--- NOTE | 2023-10-17 07:30 | PCM.POST.ANE ---
Anesthesia: Postop Eval I Current Vital Signs Temperature: 98 F Pulse Rate: 72 Blood Pressure: 96/58 Respiratory Rate: 16 Pulse Ox: 96 Oxygen Delivery Method: Room Air Assessment Airway patent: Yes Spontaneous unlabored respirations: Yes Mental status: Asleep nausea: No Vomiting: No Anesthesia Complication: No Fluid Hydration Crystalloid volume administer (ml): 400 Total IV fluid infused: 400 Progress Note Anesthesia document: Postop Eval 1 completed: Yes
--- NOTE | 2023-10-17 08:35 | PCM.POSTANE2 ---
Anesthesia Postop Eval I Sum Postop Eval Completion status Anesthesia document: Postop Eval 1 completed: Yes Anesthesia Postop Eval I Summary Anesthesia Postop Eval I Summary: Anesthesia Postop Eval I: Assessment Summary Airway patent Yes 10/17/23 07:31 [email or web address] Spontaneous unlabored Yes 10/17/23 07:31 [email or web address] respirations Mental status Asleep 10/17/23 07:31 [email or web address] nausea No 10/17/23 07:31 [email or web address] Vomiting No 10/17/23 07:31 [email or web address] Anesthesia Postop Eval I: Fluid Summary Crystalloid volume administer 400 10/17/23 07:31 [email or web address] (ml) Colloids volume administered ( ml) Blood Product volume administered (ml) Total IV fluid infused 400 10/17/23 07:31 [email or web address] Anesthesia Postop Eval I: Summary Notes Anesthesia Complication No 10/17/23 07:31 [email or web address] Anesthesia Complication Comment: Post-operative progress note Anesthesia: Postop Eval II Evaluation Mental status: Awake Pain Level: 0 nausea: No Vomiting: No
== END 2023-10-17 08:06 | disposition home or self-care (01) ==
LOC: EN 06:05 → AC 06:06
PROVIDERS: Anesthesiology; PCP Family Medicine; Referring Provider Family Medicine; Visit Provider Internal Medicine Gastroenterology
PROC: 0DJ08ZZ Inspection of Upper Intestinal Tract, Via Natural or Artificial Opening Endoscopic (ICD-10-PCS; CPT 43235; principal; 2023-10-17 06:55)
DX: K29.80 Duodenitis without bleeding (principal); K31.4 Gastric diverticulum; K25.7 Chronic gastric ulcer without hemorrhage or perforation; K58.9 Irritable bowel syndrome, unspecified; K21.9 Gastro-esophageal reflux disease without esophagitis; Z79.899 Other long term (current) drug therapy
CPT/HCPCS: 43239; 81025; 88305; J7120; J2405

== ENCOUNTER 2024-10-28 13:52 | Emergency (ER) | payer OTHER, SELFPAY ==
[2024-10-28 13:53] VITALS: BP 144/84; PULSE 95; RESP 18; TEMP 36.8; O2SAT 96; BMI 26.1
--- NOTE | 2024-10-28 14:13 | EDS_ITS ---
HPI History of Present Illness Chief Complaint: Chest Pain [facility] Medical History Anemia Gastric reflux History of echocardiogram Wears contact lenses Alcohol use Migraine headache Loss of consciousness History of ulceration Non-smoker Shortness of breath on exertion Hypotension Hx of Post concussion syndrome Abdominal pain Vertigo Bipolar disorder Insomnia IBS (irritable bowel syndrome) Stomach ulcer Acid reflux Anxiety Depression Home Medications ?Medication ?Instructions ?Recorded ?Last Taken ?Type trazodone 50 mg tablet 125 mg PO QHS 05/15/1910/15 History etonogestrel 0.12 mg-ethinyl 0.12 vag ring vaginal JENNIFER LY 09/16/21 10/16/23 History estradiol 0.015 mg/24 hr vaginal ring (NuvaRing) famotidine 20 mg tablet 20 mg PO BID #60 tabs 10/16/23 Rx propranolol 10 mg tablet 10 mg PO BID PRN PRN anxiety 07/27/23 10/16/23 History plecanatide 3 mg tablet (Trulance) 3 mg PO DAILY #90 t abs 05/23/24 Unknown Rx Allergy/AdvReac Type Severity Reaction Status Date / Time No Known Allergies Allergy Verified 10/28/24 13:55 Family History Mother Breast cancer Anemia Anxiety Hyperlipidemia Arthritis Hypertension Father Diabetes Colon cancer Hyperlipidemia Arthritis Hypertension Grandmother Anemia Arthritis Cancer Hypertension Surgical History History of esophagogastroduodenoscopy (EGD) Social History Smoking Status: Never smoker alcohol intake: current EXAM Physical Exam Const Vital Signs: 10/28/24 13:53 10/28/24 14:12 Temperature 98.2 F Temperature Source Oral Pulse Rate 95 Respiratory Rate 18 Respiratory Effort Normal Non-Labored Blood Pressure 144/84 H Blood Pressure Mean 104 Pulse Ox 96 Oxygen Delivery Method Room Air Discharge Plan Triage Chief Complaint: Chest Pain Other Complaint: Upper Extremity Injury ED Provider: Rajesh Martinez Dx/Rx/DC Orders Prescriptions: No Action famotidine 20 mg tablet 20 mg PO BID Qty: 60 10RF trazodone 50 mg tablet 125 mg PO QHS Patient Comments: SLEEP etonogestrel-ethinyl estradiol [NuvaRing] 0.12-0.015 mg/24 hr Ring 0.12 vag ring VAGINAL DAILY propranolol 10 mg tablet 10 mg PO BID PRN PRN (Reason: anxiety) Trulance 3 mg tablet 3 mg PO DAILY Qty: 90 11RF Primary Care Provider: Mei Kathleen Referrals: Mei Kathleen MD [Primary Care Provider] - Print Language: Martiniquais
--- NOTE | 2024-10-28 14:13 | ED.VIS.CHEST ---
HPI History of Present Illness Chief Complaint: Chest Pain Informant: patient Onset/Context/Timing Onset: Days (5) Activity at onset: gradual Quality: Positive for Burning, Sharp and - (Pressure) Location: Left Chest and - (Lower EXTR right shoulder, right arm) Worsened By: Movement of Arm, Breathing and - (Certain positions and riding in a car) Relieved By: Nothing Associated Symptoms: Positive for Nausea, Vomiting, Dyspnea and Acid Reflux; Negative for Diaphoresis, Cough, Fever, Lightheadedness or Palpitations Narrative Narrative: Patient presents with chest pain that has been waxing and waning over the last 5 days. Patient states it is mainly over the right upper chest. Patient describes it as sharp and burning. Patient also admits to some pressure. Patient states her pain radiates down her right forearm to her forearm and wrist. Patient states it is worse with movement of her arm. Patient states it is worse with deep breathing. Patient reports it is worse with certain positions. Patient states that is also worse while riding in a car. Patient admits to some nausea and vomiting. Patient admits to some reflux symptoms. Patient elects to start dizziness. Patient states that the dizziness feels like it is a spinning sensation. CVD Risk Factors: Negative for Hypertension, Diabetes, Hypercholesterolemia, Family History 1' </=55 or Smoking PE Risk Factors: Negative for Recent Travel/Surgery, Recent Immobilization, Prior DVT or PE, Cancer or OCP + Smoking + >/=35 PFSH PFSH Medical History Anemia Gastric reflux History of echocardiogram Wears contact lenses Alcohol use Migraine headache Loss of consciousness History of ulceration Non-smoker Shortness of breath on exertion Hypotension Hx of Post concussion syndrome Abdominal pain Vertigo Bipolar disorder Insomnia IBS (irritable bowel syndrome) Stomach ulcer Acid reflux Anxiety Depression Home Medications ?Medication ?Instructions ?Recorded ?Last Taken ?Type trazodone 50 mg tablet 125 mg PO QHS 05/15/19 10/16/23 History etonogestrel 0.12 mg-ethinyl 0.12 vag ring vaginal DAILY 09/16/21 10/16/23 History estradiol 0.015 mg/24 hr vaginal ring (NuvaRing) famotidine 20 mg tablet 20 mg PO BID #60 tabs 05/10/23 10/16/23 Rx propranolol 10 mg tablet 10 mg PO BID PRN PRN anxiety 05/10/24 07/30/24 History plecanatide 3 mg tablet (Trulance) 3 mg PO DAILY #90 tabs 05/23/24 Unknown Rx hydrocodone-acetaminophen 5-325mg 1 tab PO Q6H PRN PRN Pain 3 days 10/28/24 Unknown Rx 5mg-325mg #10 TABLETS meloxicam 15 mg tablet 15 mg PO DAILY #10 tabs 10/28/24 Unknown Rx Allergy/AdvReac Type Severity Reaction Status Date / Time No Known Allergies Allergy Verified 10/28/24 13:55 Family History Mother Breast cancer Anemia Anxiety Hyperlipidemia Arthritis Hypertension Father Diabetes Colon cancer Hyperlipidemia Arthritis Hypertension Grandmother Anemia Arthritis Cancer Hypertension Surgical History History of esophagogastroduodenoscopy (EGD) Social History Smoking Status: Never smoker alcohol intake: current ROS ROS ED Constitutional Constitutional ED: Denies chills or fever(s) Eyes Eyes: Denies blurry vision or change in vision ENT ENT ED: Denies rhinorrhea or sore throat Cardiovascular Cardiovascular: Reports chest pain; Denies palpitations Respiratory/Chest Respiratory/Chest: Reports dyspnea; Denies cough Gastrointestinal Gastrointestinal: Reports nausea and vomiting; Denies abdominal pain Genitourinary Genitourinary ED: Denies dysuria or hematuria Musculoskeletal Musculoskeletal: Reports back pain and neck pain Integumentary Denies abscess or rash Neurologic Neurologic: Denies headache(s) or weakness Allergic/Immunologic Allergic/Immunologic ED: Denies mouth swelling or urticaria EXAM Physical Exam Const Vital Signs: 10/28/24 13:53 10/28/24 14:12 10/28/24 14:53 Temperature 98.2 F Temperature Source Oral Pulse Rate 95 90 Respiratory Rate 18 12 Respiratory Effort Normal Non-Labored Blood Pressure 144/84 H 143/104 H Blood Pressure Mean 104 117 Pulse Ox 96 99 Oxygen Delivery Method Room Air Room Air 10/28/24 15:00 10/28/24 15:00 10/28/24 16:00 Temperature Temperature Source Pulse Rate 73 Respiratory Rate 16 Respiratory Effort Blood Pressure 143/104 H 125/88 H Blood Pressure Mean 117 100 Pulse Ox 100 Oxygen Delivery Method Room Air Room Air 10/28/24 17:00 10/28/24 17:37 Temperature 98.2 F Temperature Source Pulse Rate 85 85 Respiratory Rate 13 13 Respiratory Effort Blood Pressure 121/78 H 121/78 H Blood Pressure Mean 92 92 Pulse Ox 100 Oxygen Delivery Method Positive well nourished and well developed General Appearance ED: well developed and NAD HEENT Reports moist mucous membranes Neck supple and no JVD Chest Wall Chest: tenderness rib and pectoral muscle Resp normal respiratory effort and clear to auscultation bilaterally Cardio regular rate and regular rhythm GI soft to palpation, non-tender and non-distended Extremity normal to inspection General Extremety ED: Negative for edema or tenderness General Extremity: Negative for edema Neuro oriented x3, CN's II-XII intact bilaterally and no sensory deficits noted Sensorium / Orientation: awake and alert Motor Exam: strength 5/5 throughout Psych mental status grossly normal Heart Score History: Slightly/Non-Suspicious ECG: Nonspecific Repolarization Age: </= 45 years Risk Factors: No Risk Factors Troponin: </= Normal Limit Score: 1 MDM MDM MDM Narrative Medical decision making narrative: Differential diagnosis includes cardiac dysrhythmia, cardiac ischemia, pneumonia, bronchitis, pulmonary embolism, vertigo, musculoskeletal pain, and anxiety. EKG will be obtained to assess for cardiac dysrhythmia cardiac ischemia. Chest x-ray will be obtained to assess for pneumonia or bronchitis. CBC will be obtained to assess for leukocytosis and anemia. Basic metabolic profile will be obtained to assess for electrolyte abnormality and renal function. High-sensitivity troponin will be obtained to assess for cardiac ischemia. 2-hour repeat high-sensitivity troponin will be obtained to assess for ongoing cardiac ischemia. D-dimer will be obtained to assess for pulmonary embolism. Lab Data Attestation: I reviewed the patient's lab results. Lab results narrative: CBC was reviewed and was essentially within normal limits. Basic metabolic profile was reviewed and was essentially within normal limits. D-dimer was reviewed and was normal at 0.27. Initial high-sensitivity troponin was reviewed and was normal at 8. 2-hour repeat high-sensitivity troponin was reviewed and was less than 6. Labs: Laboratory Results - last 24 hr 10/28/24 10/28/24 14:50 16:35 WBC 10.7 RBC 4.64 Hgb 13.4 Hct 37.5 MCV 80.8 L MCH 28.9 MCHC 35.7 RDW Std Deviation 36.0 RDW Coeff of El 12.4 Plt Count 359 MPV 10.7 Immature Gran % (Auto) 0.400 Neut % (Auto) 74.7 H Lymph % (Auto) 16.1 L [place] % (Auto) 7.3 Eos % (Auto) 1.0 Baso % (Auto) 0.5 Absolute Neuts (auto) 8.0 H Absolute Lymphs (auto) 1.72 Nucleated RBC % 0 D-Dimer Quant (PE/DVT) 0.27 Sodium 138 Potassium 3.3 Chloride 105 Carbon Dioxide 18.6 L Anion Gap 15 BUN 8 Creatinine 0.70 Estim Creat Clear Calc 100.90 Est GFR (MDRD) Non-Af 111 BUN/Creatinine Ratio 11.5 Glucose 110 H Calcium 9.7 Troponin T High Sens 8 Troponin T Hi Sens 2 Hr < 6 Radiography Chest X-Ray - ED: 2 View, Read by ED Physician, Read by Radiologist and No Acute Disease Diagnostic Testing: Clinical Impression(s) from Imaging Studies Chest X-Ray 10/28/24 15:10 IMPRESSION: NEGATIVE CHEST Reading Location: [facility] [place] and lateral chest x-ray was obtained. There are 2 views. On my independent interpretation, lung villagomez are clear. There is normal cardiac silhouette. Bony thorax is normal. There is no acute process noted. Radiologist also interpreted the x-ray and agrees. EKG Initial EKG: Attestation: I personally reviewed and interpreted this EKG as follows: Interpretation: Sinus Tachycardia (102) and Non-Specific ST Changes Comments: EKG was obtained. On my independent interpretation, it showed a sinus tachycardia with a rate of 102. ID interval, QRS interval, and QTc intervals were all normal. [place] was normal. There are nonspecific ST-T wave changes. Prior EKG tracings: not available for review Prior: No Prior Treatment and Re-Evaluation :: Patient was given IV fluids, morphine, and aspirin. Patient was given a dose of Valium. Patient was feeling better on reevaluation. Patient was advised of her findings. Patient has a HEART score of 1. Patient was advised that this is low risk for acute cardiac event. Patient was given a prescription for meloxicam. Patient was instructed to take this daily. Patient was also given a prescription for short course of hydrocodone for severe pain. Patient was instructed to follow-up with her primary care physician in 5 to 7 days. Patient was instructed to return if worse in any way. Patient understood and was agreeable with the plan. All questions were answered. Discharge Plan Triage Chief Complaint: Chest Pain Other Complaint: Upper Extremity Injury ED Provider: Rajesh Martinez Dx/Rx/DC Orders Clinical Impression: Right-sided chest pain Instructions: ED Chest Pain, Uncertain Cause Prescriptions: New hydrocodone-acetaminophen 5-325 mg tablet 1 tab PO Q6H PRN PRN (Reason: Pain) 3 Days Qty: 10 0RF meloxicam 15 mg tablet 15 mg PO DAILY Qty: 10 0RF No Action famotidine 20 mg tablet 20 mg PO BID Qty: 60 10RF trazodone 50 mg tablet 125 mg PO QHS Patient Comments: SLEEP etonogestrel-ethinyl estradiol [NuvaRing] 0.12-0.015 mg/24 hr Ring 0.12 vag ring VAGINAL DAILY propranolol 10 mg tablet 10 mg PO BID PRN PRN (Reason: anxiety) Trulance 3 mg tablet 3 mg PO DAILY Qty: 90 11RF Primary Care Provider: Mei Kathleen Referrals: Mei Kathleen MD [Primary Care Provider] - 5-7 Days Print Language: Turkmen
--- NOTE | 2024-10-28 14:43 | EKG12_ITS ---
Test Reason : CP Blood Pressure : */* mmHG Vent. Rate : 102 BPM Atrial Rate : 102 BPM P-R Int : 172 ms QRS Dur : 78 ms QT Int : 340 ms P-R-T Axes : 63 59 26 degrees QTcB Int : 443 ms Sinus tachycardia Nonspecific T wave abnormality Abnormal ECG Confirmed by Steven Carcamo ([id number]), editor greeting card DORIAN ARIAS ([id number]) on 10/29/2024 9:40:09 AM Referred By: Confirmed By: Steevn Carcamo
[2024-10-28 14:53] VITALS: BP 143/104; PULSE 90; RESP 12; O2SAT 99
[2024-10-28] MEDS: 0.9% Normal Saline (1000mL) 1,000 ML 999 ML IV (14:56)
[2024-10-28 14:57] LABS: Hematocrit 37.5 % (37-47); Hemoglobin 13.4 g/dL (12.0-15.0); Immature Granulocytes Count 0.040 X10^3/uL (0.0-0.0); Mean Corp Hgb Conc 35.7 g/dL (32-36); Mean Corpuscular Volume 80.8 fL (81-99); Mean Platelet Vol. 10.7 fl (6.2-12.0); NRBC Flagged by Analyzer 0 % (0-5); Platelet Count 359 K/mm3 (150-450); RBC Distribution Width CV 12.4 % (11.6-14.6); RBC Distribution Width SD 36.0 fl (35.1-43.9); Red Blood Count 4.64 M/mm3 (4.2-5.4); White Blood Count 10.7 K/mm3 (4.4-11.0)
[2024-10-28 15:00] VITALS: BP 143/104
[2024-10-28 15:10] LABS: D-Dimer Quantitative (DVT/PE) 0.27 FEU/ug/m (0.27-0.49)
--- NOTE | 2024-10-28 15:10 | RAD_ITS ---
PROCEDURE: CHEST PA AND LATERAL 10/28/2024 REASON FOR EXAM: CHEST PAIN TECHNIQUE: CHEST PA AND LATERAL COMPARISON: None. FINDINGS: LUNGS AND PLEURA: The lungs are clear. No pleural effusion or pneumothorax. HEART AND MEDIASTINUM: The heart size and mediastinal contours are normal. BONES: No acute osseous abnormality. RAD/Chest PA and Lateral IMPRESSION: NEGATIVE CHEST Reading Location: [id number]
[2024-10-28 15:19] LABS: Anion Gap 15 (5-15); BUN 8 mg/dL (4-19); BUN/Creat Ratio 11.5 RATIO (10-20); Calcium,Total 9.7 mg/dL (7.6-11.0); Carbon Dioxide 18.6 mmol/L (21.0-32.0); Chloride 105 mmol/L (98-108); Estimated Creatinine Clearance 100.90 ml/min (50-250); Glucose 110 mg/dL (70-99); Potassium 3.3 mmol/L (3.3-5.1); Troponin T High Sensitivity 8 ng/L (<=14)
[2024-10-28 16:00] VITALS: BP 125/88; PULSE 73; RESP 16; O2SAT 100
[2024-10-28 17:00] VITALS: BP 121/78; PULSE 85; RESP 13
[2024-10-28 17:15] LABS: Troponin T High Sens 2 HR < 6 ng/L (<=14)
[2024-10-28 17:37] VITALS: BP 121/78; PULSE 85; RESP 13; TEMP 36.8; O2SAT 100
== END 2024-10-28 17:54 | disposition home or self-care (01) ==
LOC: ED 14:31
PROVIDERS: Emergency Provider Emergency Medicine; PCP Family Medicine; Visit Provider Emergency Medicine
DX: R07.89 Other chest pain (principal)
CPT/HCPCS: 71046; 80048; 84484; 85025; 85379; 93005; 96361; 96374; 99285; A4216

== ENCOUNTER → 2025-03-10 | Outpatient (CLI) | payer OTHER, SELFPAY ==
[2025-03-05 13:14] LABS: Hematocrit 37.0 % (37-47); Hemoglobin 12.8 g/dL (12.0-15.0); Mean Corp Hgb Conc 34.6 g/dL (32-36); Mean Corpuscular Volume 84.1 fL (81-99); Mean Platelet Vol. 11.0 fl (6.2-12.0); Platelet Count 331 K/mm3 (150-450); RBC Distribution Width CV 13.0 % (11.6-14.6); RBC Distribution Width SD 39.8 fl (35.1-43.9); Red Blood Count 4.40 M/mm3 (4.2-5.4); White Blood Count 7.3 K/mm3 (4.4-11.0)
[2025-03-05 13:53] LABS: AST(SGOT) 20 U/L (<=31); Alanine Aminotransfer ALT/SGPT < 5 U/L (<=34); Albumin, Serum 4.4 g/dL (3.5-5.0); Alkaline Phosphatase 78 U/L (35-104); Anion Gap 12 (5-15); BUN 6 mg/dL (4-19); BUN/Creat Ratio 8.3 RATIO (10-20); Calcium,Total 9.6 mg/dL (7.6-11.0); Carbon Dioxide 23.2 mmol/L (21.0-32.0); Chloride 105 mmol/L (98-108); Globulin 3.7 g/dL (2.2-4.2); Glucose 101 mg/dL (70-99); Potassium 3.6 mmol/L (3.3-5.1)
[2025-03-05 13:54] LABS: Internal QC Validated? YES +Cl - CLEAR BKGD; Pregnancy, Serum, hCG Quali. NEGATIVE Negative
--- OUTSIDE RECORDS SUMMARY | 2025-03-10 09:49 | XMS RPT_ITS | CCD ---
Author Organization [facility] Care Team Providers Care Dispatcher Street Department Name Role Phone Dr. Loretta Nuno Primary Care Provider [phone] Dr. Loretta Nuno Referring Provider Flavia MECHANICAL ASSEMBLY, MECHANICAL ASSEMBLYNiurkaC Roseanne Palma Attending Provider Friend, Dr. Wang Attending Provider [phone] Friend, Dr. Wang Other Provider Dr. Loretta Nuno Primary Care Provider Dr. Loretta Nuno Referring Provider [phone] Lenny MELENDEZ, NORA Palma Attending Provider [phone] Mei Kathleen MD Primary Care Provider Dr. Rajesh Martinez DO Emergency Provider [phone] LION, LORETTA K Primary Care Unavailable ERIKA, GENE A Attending Unavailable LION, LORETTA K Primary Care Unavailable ERIKA, GENE A Attending Unavailable LION, LORETTA K Primary Care Unavailable ERIKA, GENE A Attending Unavailable LION, LORETTA K Primary Care Unavailable ERIKA, GENE A Attending Unavailable LION, LORETTA K Primary Care Unavailable ERIKA, GENE A Attending Unavailable LION, LORETTA K Primary Care Unavailable ERIKA, GENE A Attending Unavailable ERIKA, GENE A Attending Unavailable LION, LORETTA K Primary Care Unavailable ERIKA, GENE A Attending Unavailable ERIKA, GENE A Referring Unavailable LION, LORETTA K Primary Care Unavailable LION, LORETTA K Primary Care Unavailable ERIKA, GENE A Attending Unavailable Hever, Elizabethon Primary Care Unavailable Rajesh Martinez Attending Unavailable Mei Kathleen Attending Unavailable HeverMei Referring Unavailable Hever, Chalon Primary Care Unavailable Allergies Allergy Classification Reported Allergen(s) Allergy Type Date of Onset Reaction(s) Facility (1 source) Pollen; Translations: [POLLEN] Propensity to adverse reactions (disorder) [facility] (1 source) OTHER; Translations: [OTHER] Propensity to adverse reactions (disorder) [facility] Medications Current Medications Medication Drug Class(es) Dates Sig (Normalized) Sig (Original) acetaminophen 325 mg / HYDROcodone bitartrate 5 mg oral tablet (1 source) Opioid Agonist Start: 10-28-2024 take 1 tablet by mouth every six hours as needed for pain Hydrocodone-Acetam inophen 5-325 mg tablet Active 1 {tbl} PO EVERY 6 HOURS NEEDED as needed for Pain 10 3 0 October 28, 2024 Right-sided chest pain Chest pain, unspecified escitalopram 10 mg oral tablet (2 sources) Serotonin Reuptake Inhibitor Start: 05-15-2019 take 1 tablet by mouth once daily Escitalopram Oxalate (Lexapro) 10 mg tablet Active 10 MG PO DAILY May 15, 2019 2:11pm 21 day ethinyl estradiol 0.211281 mg/hr / etonogestrel 0.005 mg/hr vaginal system (5 sources) Progestin, Estrogen Start: 09-16-2021 Etonogestrel-Ethin yl Estradiol (Nuvaring) 0.12-0.015 mg/24 hr Ring Active 0.12 NMA VAGINAL DAILY September 16, 2021 12:00am Start: 09-16-2021 Etonogestrel-E thinyl Estradiol (Nuvaring) 0.12-0.015 mg/24 hr Ring Active 0.12 VAG RING VAGINAL DAILY September 15, 2021 11:00pm Start: 08-16-2021 Etonogestrel-E thinyl Estradiol (Nuvaring) 0.12-0.015 mg/24 hr ring Active 1 VAG RING VAGINAL every 4 weeks August 16, 2021 3:25pm leave in place for 3 weeks of a 4-week cycle famotidine 20 mg oral tablet (1 source) Histamine-2 Receptor Antagonist Start: 05-10-2023 take 1 tablet by mouth twice daily Famotidine 20 mg tablet Active 20 mg PO TWICE A DAY 60 10 May 10, 2023 1:00am meloxicam 15 mg oral tablet (1 source) Nonsteroidal Anti-inflammatory Drug Start: 10-28-2024 take 1 tablet by mouth once daily Meloxicam 15 mg tablet Active 15 mg PO DAILY 10 October 28, 2024 12:00am plecanatide 3 mg oral tablet (8 sources) Start: 08-26-2021 End: 05-23-2024 take 1 tablet by mouth once daily Plecanatide (Trulance) 3 mg tablet Active 3 mg PO DAILY 90 May 23, 2024 5:50pm propranolol hydrochloride 10 mg oral tablet (1 source) beta-Adrenergic Marcelo Start: 07-27-2023 take 1 tablet by mouth twice daily as needed for anxiety Propranolol 10 mg tablet Active 10 mg PO TWICE DAILY NEEDED as needed for anxiety July 27, 2023 12:00am traZODone hydrochloride 50 mg oral tablet (10 sources) Serotonin Reuptake Inhibitor Start: 05-15-2019 Trazodone 50 mg tablet Active 125 mg PO AT BEDTIME May 15, 2019 2:11pm Start: 05-15-2019 take 125 mg by mouth at bedtim e Trazodone Active 125 MG PO AT BEDTIME May 15, 2019 1:11pm Start: 05-15-2019 take 100 mg by mouth at bedtime as needed Trazodone Active 100 MG PO AT BEDTIME NEEDED May 15, 2019 2:11pm Start: 08-24-2014 End: 05-15-2019 take 1 tablet by mouth at bedtime as needed Trazodone 50 MG tablet Discontinued 50 mg PO AT BEDTIME NEEDED as needed for Insomnia August 24, 2014 12:00am May 15, 2019 2:12pm Completed/Discontinued Medications Medication Drug Class(es) Dates Sig (Normalized) Sig (Original) acetaminophen 325 mg / oxyCODONE hydrochloride 5 mg oral tablet (5 sources) Opioid Agonist Start: 08-25-2014 End: 05-15-2019 Oxycodone-Acetamino phen 1 TABLET tablet Discontinued 1 - 2 {tbl} PO EVERY 4 HOURS NEEDED as needed for Pain August 25, 2014 12:00am May 15, 2019 2:10pm Start: 08-25-2014 End: 05-15-2019 take 1 tablet by mouth every four hours as needed Oxycodone-Acetaminophen Discontinued 1 - 2 TABLET PO EVERY 4 HOURS NEEDED August 24, 2014 11:00pm May 15, 2019 1:10pm benzonatate 200 mg oral capsule (2 sources) Non-narcotic Antitussive Start: 02-28-2023 End: 07-27-2023 take 1 capsule by mouth three times daily as needed for cough Benzonatate 200 mg capsule Discontinued 200 mg PO THREE TIMES A DAY as needed for cough 20 0 February 28, 2023 1:00am July 27, 2023 11:55am 12 hr carBAMazepine 200 mg extended release oral tablet (5 sources) Mood Stabilizer Start: 08-24-2014 End: 05-15-2019 take 1 tablet by mouth twice daily Carbamazepine 200 MG tablet extended release 12 hr Discontinued 200 mg PO TWICE A DAY August 24, 2014 12:00am May 15, 2019 2:10pm cephalexin 500 mg oral capsule (5 sources) Cephalosporin Antibacterial Start: 08-25-2014 End: 05-15-2019 take 1 capsule by mouth every eight hours Cephalexin 500 MG capsule Discontinued 500 mg PO EVERY 8 HOURS 20 0 August 25, 2014 12:00am May 15, 2019 2:10pm docusate sodium 100 mg oral capsule (5 sources) Start: 08-25-2014 End: 08-16-2021 take 1 capsule by mouth twice daily Docusate Sodium (Colace) 100 MG capsule Discontinued 100 mg PO TWICE A DAY 20 0 August 25, 2014 12:00am August 16, 2021 3:25pm omeprazole 40 mg delayed release oral capsule (10 sources) Proton Pump Inhibitor Start: 10-24-2021 End: 05-10-2023 take 1 capsule by mouth twice daily Omeprazole 40 mg capsule,delayed release(DR/EC) Discontinued 40 mg PO TWICE A DAY 180 0 October 24, 2021 12:00am May 10, 2023 11:55am Start: 09-16-2021 End: 10-24-2021 take 1 tablet by mouth once daily Omeprazole 20 mg Tablet,Delayed Release (Dr/Ec) Discontinued 20 mg PO DAILY September 16, 2021 12:00am October 24, 2021 1:57pm Start: 05-15-2019 End: 08-16-2021 take 1 capsule by mouth once daily Omeprazole 20 mg capsule,delayed release(DR/EC) Discontinued 20 mg PO DAILY May 15, 2019 1:00am August 16, 2021 3:25pm oseltamivir 75 mg oral capsule (2 sources) Neuraminidase Inhibitor Start: 02-28-2023 End: 03-05-2023 take 1 capsule by mouth every twelve hours Oseltamivir 75 mg capsule Discontinued 75 mg PO Q12H 10 5 0 February 28, 2023 1:00am March 04, 2023 1:00am March 05, 2023 1:05am pantoprazole 40 mg delayed release oral tablet (5 sources) Proton Pump Inhibitor Start: 07-13-2021 End: 08-16-2021 take 1 tablet by mouth once daily Pantoprazole 40 mg tablet,delayed release (DR/EC) Discontinued 40 mg PO DAILY July 13, 2021 12:00am August 16, 2021 3:25pm QUEtiapine 25 mg oral tablet (5 sources) Atypical Antipsychotic Start: 07-13-2021 End: 10-16-2023 take 1 tablet by mouth at bedtime Quetiapine 25 mg tablet Discontinued 25 mg PO AT BEDTIME July 13, 2021 12:00am October 16, 2023 12:12pm raNITIdine 150 mg oral tablet (5 sources) Histamine-2 Receptor Antagonist Start: 05-15-2019 End: 08-16-2021 take 1 tablet by mouth once daily Ranitidine Hcl (Zantac) 150 mg tablet Discontinued 150 mg PO DAILY May 15, 2019 1:00am August 16, 2021 3:25pm sucralfate 1000 mg oral tablet (2 sources) Aluminum Complex Start: 10-24-2021 End: 05-10-2023 take 1 tablet by mouth before mealtime Sucralfate 1 gram tablet Discontinued 1 g PO before meals 90 0 October 24, 2021 12:00am May 10, 2023 11:54am stomach ulcer tamsulosin hydrochloride 0.4 mg oral capsule (5 sources) alpha-Adrenergic Marcelo Start: 08-25-2014 End: 05-15-2019 take 1 capsule by mouth once daily Tamsulosin 0.4 MG capsule Discontinued 0.4 mg PO DAILY 10 0 August 25, 2014 12:00am May 15, 2019 2:11pm Problems Active Problems Problem Classification Problem Date Documented Da te Episodic/Chronic Abdominal pain (8 sources) Abdominal pain; Translations: [Unspecified abdominal pain] Episodic Anxiety disorders (2 sources) Anxiety disorder, unspecified; Translations: [Post-traumatic stress disorder, unspecified] Onset: 5 Chronic Attention-deficit, conduct, and disruptive behavior disorders (1 source) Attention-deficit hyperactivity disorder, predominantly inattentive type; Translations: [ADHD, predominantly inattentive type] Onset: 5 Chronic Disorders usually diagnosed in infancy, childhood, or adolescence (2 sources) Autistic disorder; Translations: [Autism spectrum (HCC)] Onset: 5 Chronic Esophageal disorders (2 sources) Gastroesophageal reflux disease; Translations: [Gastro-esophageal reflux disease without esophagitis] 10-24-2021 Chronic Gastroduodenal ulcer (except hemorrhage) (2 sources) Gastric ulcer; Translations: [Gastric ulcer, unspecified as acute or chronic, without hemorrhage or perforation] 10-24-2021 Chronic Intracranial injury (2 sources) Concussion injury of body structure; Translations: [Concussion] 04-20-2023 Episodic Mood disorders (1 source) Mood disorders; Translations: [Anxiety and depression] Onset: 5 Nonspecific chest pain (2 sources) Right sided chest pain; Translations: [Chest pain, unspecified] Onset: 5 10-28-2024 Episodic Other circulatory disease (1 source) Orthostatic hypotension; Translations: [Orthostatic hypotension] Onset: Episodic Other gastrointestinal disorders (2 sources) Irritable bowel syndrome characterized by constipation; Translations: [Irritable bowel syndrome with constipation] 12-19-2021 Chronic Other gastrointestinal disorders (5 sources) Constipation alternates with diarrhea; Translations: [Other specified symptoms and signs involving the digestive system and abdomen] 08-16-2021 Episodic Other gastrointestinal disorders (3 sources) Other specified symptoms and signs involving the digestive system and abdomen; Translations: [Other symptoms involving digestive system] Episodic Other injuries and conditions due to external causes (2 sources) Closed injury of head; Translations: [Unspecified injury of head, initial encounter] 04-20-2023 Episodic Other nutritional; endocrine; and metabolic disorders (1 source) Other symptoms and signs concerning food and fluid intake; Translations: [Weight disorder] Onset: 5 Episodic Superficial injury; contusion (2 sources) Contusion of left shoulder; Translations: [Contusion of left shoulder, initial encounter] 04-20-2023 Episodic Unclassified (1 source) POTS (postural orthostatic tachycardia syndrome); Translations: [POTS (postural orthostatic tachycardia syndrome)] Onset: Past or Other Problems Problem Classification Problem Date Documented Da te Episodic/Chronic Other nervous system disorders (1 source) Unspecified disturbances of skin sensation; Translations: [Sensory disorder] Onset: 07-10-2024 Episodic Results Test Name Value Interpretation Reference Range Facility OV 01-15-2025 CNOV Office Visit (PSYLWM ) BIN CARRASCO ([id number]) 1985 F Date Time Provider Department 01/15/25 11:00 AM BAKARI JAMES PSYLWM During your visit today, we recorded the following information about you: Bakari James, PhD 01/15/2025 12:08 PM Signed [facility] Progress Note Bin Carrasco 01/15/2025 [id number] PROVIDER: Bakari James, PhD CPT Code: Time: 50 minutes Setting: Patient seen in person Parties Present: Patient Treatment Modality/Interventions: Cognitive Behavioral Reassurance/Supportive Insight oriented Problem solving Processing of emotions Psychoeducation MENTAL STATUS: Mood: variable, anxious Affect: mood-congruent Thoughts/Associations:goal directed Suicidal/Homicidal Ideation: None expressed or evidenced Other Prominent Symptoms: Therapy Focus/Content of Session: Self-care, Stress management, Mood/affect regulation, and Self-esteem POTS: working on clarity of what kind and what would be the tx Weight: she has been using GLP 1 compound and lost 70lbs this has also helped with ulcerative colitis so working to find a maintenance dose Son is considering clinical psychology and shift from Law PLAN: he might do both eventually and parents are encouraging of what draws him into life MOOD: generally stable with lots on the table practice: the old lease has not been taken over yet and she loves her new office space 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 NUVARING 0.12-0.015 mg/24 hr vaginal ring No current facility-administered medications for this visit. Psychiatric Medication Issues: No change from previous appointment DIAGNOSIS: [place] I: Anxiety and Depression Autism ADHD sensory issues weight issues POTS r/o PTSD [place] II: deferred [place] III: see med notes [place] IV: trauma [place] V: 55-70 TREATMENT PROGRESS/ASSESSMENT: Progressing satisfactorily. TREATMENT PLAN/GOALS: Continue in therapy focusing on self-care, interpersonal relationships, stress management, affect management, anxiety management, and self-esteem. Next appointment: as scheduled Bakari James, PhD Allergies As of Date: 01/15/2025 Noted Allergy Reaction horses [Other] 12/16/2007 4 - Hives POLLEN 12/16/2007 4 - Hives Comments: shellfish, raw potatoes, grasses. 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 - NUVARING 0.12-0.015 mg/24 hr vaginal ring Problem List As Of Date 01/15/2025 Noted Resolved INITIATE CONTRACEPT NEC [Z30.09] 12/16/2007 12/16/2007 DYSMENORRHEA [N94.6] 12/16/2007 IRREGULAR MENSTRUATION [N92.6] 12/16/2007 CONTRACEPTIVE MANGMT NEC [Z30.09] 12/16/2007 Mastodynia [N64.4] 08/24/2009 PTSD (post-traumatic stress disorder) [F43.10] 09/29/2014 Recurrent major depressive disorder, in partial*05/21/2015 Encounter Status:Closed by BAKARI JAMES on 01/15/25 Normal [facility] CNOVon 12-18-2024 CNOV Office Visit (PSYLWM ) BIN CARRASCO ([id number]) 1985 F Date Time Provider Department 12/18/24 11:00 AM BAKARI JAMES PSYLWM During your visit today, we recorded the following information about you: Bakari James, PhD 12/18/2024 5:25 PM Signed [facility] Progress Note Bin Carrasco 12/18/2024 [id number] PROVIDER: Bakari James, PhD CPT Code: Time: 50 minutes Setting: Patient seen in person Parties Present: Patient Treatment Modality/Interventions: Cognitive Behavioral Reassurance/Supportive Insight oriented Problem solving Processing of emotions Psychoeducation MENTAL STATUS: Mood: variable, anxious Affect: mood-congruent Thoughts/Associations:goal directed Suicidal/Homicidal Ideation: None expressed or evidenced Other Prominent Symptoms: Therapy Focus/Content of Session: Self-care, Mood/affect regulation, and Self-esteem Yarely has moved in and started seeing clients in her new office... bigger ... light and windows vs in the basement and can expand and be used also w her Mom lives w them and she had a sit down about expenses OUTCOME; everyone knows what they need to contribute now and the anxiety has diminished Her is not clear about next steps and since he has more schooling, his work peers are pushing him out he has been offered a teaching position at [employer] when he finishes school and wants also a private practice Son doing well and the household is more spacious and workable since he is away in spite of missing him financially..the old office is still under her responsibility but there are people interested that would lead to her exiting that expense plus her new office WEIGHT: she has shed the pounds and keeping them off MEDICATIONS: Per medical record: Current Outpatient Medications Medication Sig benzonatate (TESSALON PERLE) 100 mg capsule Take 1 capsule by mouth three times daily as needed for Cough. NUVARING 0.12-0.015 mg/24 hr vaginal ring No current facility-administered medications for this visit. Psychiatric Medication Issues: No change from previous appointment DIAGNOSIS: [place] I: Anxiety and Depression Autism ADHD sensory issues weight issues r/o PTSD [place] II: deferred [place] III: see med notes [place] IV: trauma [place] V: 55-70 TREATMENT PROGRESS/ASSESSMENT: Progressing satisfactorily. TREATMENT PLAN/GOALS: Continue in therapy focusing on self-care, affect management, and self-esteem. Next appointment: as scheduled Bakari James, PhD Allergies As of Date: 12/18/2024 Noted Allergy Reaction horses [Other] 12/16/2007 4 - Hives POLLEN 12/16/2007 4 - Hives Comments: shellfish, raw potatoes, grasses. 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 - NUVARING 0.12-0.015 mg/24 hr vaginal ring Problem List As Of Date 12/18/2024 Noted Resolved INITIATE CONTRACEPT NEC [Z30.09] 12/16/2007 12/16/2007 DYSMENORRHEA [N94.6] 12/16/2007 IRREGULAR MENSTRUATION [N92.6] 12/16/2007 CONTRACEPTIVE MANGMT NEC [Z30.09] 12/16/2007 Mastodynia [N64.4] 08/24/2009 PTSD (post-traumatic stress disorder) [F43.10] 09/29/2014 Recurrent major depressive disorder, in partial*05/21/2015 Encounter Status:Closed by BAKARI JAMES on 12/18/24 [facility] CNOVon 12-04-2024 CNOV Office Visit (PSYLWM ) CARRASCOBIN DE LEON ([id number]) 1985 F Date Time Provider Department 12/04/24 11:00 AM BAKARI JAMES PSYLWM During your visit today, we recorded the following information about you: Bakari James, PhD 12/04/2024 12:16 PM Signed [facility] Progress Note Bin Mulligan Danilo 12/04/2024 [id number] PROVIDER: Bakari James, PhD CPT Code: Time: 50 minutes Setting: Patient seen in person Parties Present: Patient Treatment Modality/Interventions: Cognitive Behavioral Reassurance/Supportive Insight oriented Problem solving Processing of emotions Psychoeducation MENTAL STATUS: Mood: variable, anxious Affect: mood-congruent Thoughts/Associations:goal directed Suicidal/Homicidal Ideation: None expressed or evidenced Other Prominent Symptoms: Therapy Focus/Content of Session: Self-care, Stress management, Mood/affect regulation, Self-esteem, and Coping with chronic illness POTS?: pt is being evaluated failed the tilt table etc. ... suggestion is that multiple concussions can lead to a form of POTS which she may have OVERWHELMED: She tends to say 'I can do it' and hold on to that and THEN crash as she gets over the finish line PLAN: awareness she does so and allow more attention to challenge but not overwhelm .. 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 we talked about how she can get defensive or reactive w other people's imposing realities PLAN: chain maker her own reality in a matter of fact way vs reactive or defensive MEDICATIONS: Per medical record: Current Outpatient Medications Medication Sig benzonatate (TESSALON PERLE) 100 mg capsule Take 1 capsule by mouth three times daily as needed for Cough. NUVARING 0.12-0.015 mg/24 hr vaginal ring No current facility-administered medications for this visit. Psychiatric Medication Issues: see med record DIAGNOSIS: [place] I: Anxiety and Depression Autism ADHD sensory issues weight issues r/o PTSD [place] II: deferred [place] III: see med notes [place] IV: trauma [place] V: 55-70 TREATMENT PROGRESS/ASSESSMENT: Progressing satisfactorily. TREATMENT PLAN/GOALS: Continue in therapy focusing on self-care, assertiveness skills, stress management, affect management, anxiety management, and self-esteem. Next appointment: as scheduled Bakari James, PhD Allergies As of Date: 12/04/2024 Noted Allergy Reaction horses [Other] 12/16/2007 4 - Hives POLLEN 12/16/2007 4 - Hives Comments: shellfish, raw potatoes, grasses. 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 - NUVARING 0.12-0.015 mg/24 hr vaginal ring Problem List As Of Date 12/04/2024 Noted Resolved INITIATE CONTRACEPT NEC [Z30.09] 12/16/2007 12/16/2007 DYSMENORRHEA [N94.6] 12/16/2007 IRREGULAR MENSTRUATION [N92.6] 12/16/2007 CONTRACEPTIVE MANGMT NEC [Z30.09] 12/16/2007 Mastodynia [N64.4] 08/24/2009 PTSD (post-traumatic stress disorder) [F43.10] 09/29/2014 Recurrent major depressive disorder, in partial*05/21/2015 Encounter Status:Closed by BAKARI JAMES on 12/04/24 [facility] 12 Lead EKGon 10-28-2024 12 Lead EKG [facility] [address] [place], [place] [address] [address] 12 Lead EKG 10/28/24 1407 MR#: [id number] Acct: [id number] Name: BIN CARRASCO Rep #: [id number] : 1985 39 From: Steven Carcamo MD Attending Dr: Status: DEP ER Ordering Dr: Rajesh Martinez DO Date: 10/28/24 Location: ED Sex: F C Admitted: Test Reason : CP Blood Pressure : */* mmHG Vent. Rate : 102 BPM Atrial Rate : 102 BPM P-R Int : 172 ms QRS Dur : 78 ms QT Int : 340 ms P-R-T Axes : 63 59 26 degrees QTcB Int : 443 ms Sinus tachycardia Nonspecific T wave abnormality Abnormal ECG Confirmed by Steven Carcamo ([id number]), editorial assistant DORIAN ARIAS ([id number]) on 10/29/2024 9:40:09 AM Referred By: Confirmed By: Steven Carcamo 10/29/2440 Date Steven Carcamo MD CC: Dr. Mei Kathleen MD; Dr. Rajesh Martinez DO Signed Normal [facility] Absolute lymphocyte countOrd ered By: Rajesh Martinez on 10-28-2024 Lymphocytes Auto (Unsp spec) [#/Vol] 1.72 10*3/uL 0.83-4.51 [facility] Absolute neutrophil countOrd ered By: Rajesh Martinez on 10-28-2024 Neutrophils (Bld) [#/Vol] 8.0 10*3/uL High 2.0-7.7 [facility] Anion gap in Serum or Plasma Ordered By: Rajesh Martinez on 10-28-2024 Anion gap [Moles/Vol] 15 mmol/L 5-15 [facility] Automated lymphocyte count a s percentage of total leukocytesOrdered By: Rajesh Martinez on 10-28-2024 Lymphocytes/100 WBC Auto (Unsp spec) 16.1 % Low 19-41 [facility] BUN/creatinine ratioOrdered By: Rajesh Martinez on 10-28-2024 Urea nitrogen/Creatinine [Mass ratio] 11.5 mg/mg 10-20 [facility] [facility] Basic Metabolic Profile (BMP )on 10-28-2024 BUN/CRE 11.5 RATIO Normal 10-20 [facility] Comment on above: Performed By: #### L 501.4021, L100.0100, L500.2500 #### [facility] [address] [place], [address] Calcium [Mass/Vol] 9.7 mg/dL Normal 7.6-11.0 [facility] Comment on above: Performed By: #### L 501.4021, L100.0100, L500.2500 #### [facility] [address] [place], [address] Chloride [Moles/Vol] 105 mmol/L Normal 98-108 [facility] Comment on above: Performed By: #### L 501.4021, L100.0100, L500.2500 #### [facility] [address] [place], [address] CO2 [Moles/Vol] 18.6 mmol/L Low 21.0-32.0 [facility] Comment on above: Performed By: #### L 501.4021, L100.0100, L500.2500 #### [facility] [address] [place], [address] Creatinine [Mass/Vol] 0.70 mg/dL Normal 0.70-1.20 [facility] Comment on above: Performed By: #### L 501.4021, L100.0100, L500.2500 #### [facility] [address] [place], [address] ECRCL 100.90 ml/min Normal 50-250 [facility] Comment on above: Performed By: #### L 501.4021, L100.0100, L500.2500 #### [facility] [address] [place], [address] GAP 15 Normal 5-15 [facility] Comment on above: Performed By: #### L 501.4021, L100.0100, L500.2500 #### [facility] [address] [place], [address] GFR/1.73 sq M.predicted among non-blacks MDRD (S/P/Bld) [Vol rate/Area] 111 mL/min/{1.73_m2} Normal >60 [facility] Comment on above: Result Comment: mL/m in/1.73m2 CKD-EPI Creatinine Equation (2020) Performed By: #### L 501.4021, L100.0100, L500.2500 #### [facility] [address] [place], [address] Glucose [Mass/Vol] 110 mg/dL High 70-99 [facility] Comment on above: Performed By: #### L 501.4021, L100.0100, L500.2500 #### [facility] [address] [place], [address] Potassium [Moles/Vol] 3.3 mmol/L Normal 3.3-5.1 [facility] Comment on above: Performed By: #### L 501.4021, L100.0100, L500.2500 #### [facility] [address] [place], [address] Sodium [Moles/Vol] 138 mmol/L Normal 133-145 [facility] Comment on above: Performed By: #### L 501.4021, L100.0100, L500.2500 #### [facility] [address] [place], [address] Urea nitrogen [Mass/Vol] 8 mg/dL Normal 4-19 [facility] Comment on above: Performed By: #### L 501.4021, L100.0100, L500.2500 #### [facility] [address] [place], [address] Basophil percentageOrdered B y: Rajesh Martinez on 08-12-2025 Basophils/100 WBC (Bld) 0.5 % 0-1 [facility] CBC W/Diff, Automatedon 08- 2-2024 Absolute Lymph 1.72 X10 3/uL Normal 0.83-4.51 [facility] Comment on above: Performed By: #### L 501.4021, L100.0100, L500.2500 #### [facility] [address] [place], [address] Absolute Neut 8.0 X10 3/uL High 2.0-7.7 [facility] Comment on above: Performed By: #### L 501.4021, L100.0100, L500.2500 #### [facility] [address] [place], [address] Basophils/100 WBC (Bld) 0.5 % Normal 0-1 [facility] Comment on above: Performed By: #### L 501.4021, L100.0100, L500.2500 #### [facility] [address] [place], [address] Eosinophils/100 WBC (Bld) 1.0 % Normal 0-5 [facility] Comment on above: Performed By: #### L 501.4021, L100.0100, L500.2500 #### [facility] [address] [place], [address] Erythrocyte distribution width (RBC) [Ratio] 12.4 % Normal 11.6-14.6 [facility] Comment on above: Performed By: #### L 501.4021, L100.0100, L500.2500 #### [facility] [address] [place], [address] Hematocrit (Bld) [Volume fraction] 37.5 % Normal 37-47 [facility] Comment on above: Performed By: #### L 501.4021, L100.0100, L500.2500 #### [facility] [address] [place], [address] Hemoglobin (Bld) [Mass/Vol] 13.4 g/dL Normal 12.0-15.0 [facility] Comment on above: Performed By: #### L 501.4021, L100.0100, L500.2500 #### [facility] [address] [place], [address] IG% 0.400 Normal 0.0-0.9 [facility] Comment on above: Result Comment: IG% - Immature Granulocytes (promyelocytes, myelocytes and metamyelocytes) > 1% indicates that a LEFT SHIFT is Present. Performed By: #### L 501.4021, L100.0100, L500.2500 #### [facility] [address] [place], [address] Lymphocytes/100 WBC (Bld) 16.1 % Low 19-41 [facility] Comment on above: Performed By: #### L 501.4021, L100.0100, L500.2500 #### [facility] [address] [place], [address] MCH (RBC) [Entitic mass] 28.9 pg Normal 27.0-32.0 [facility] Comment on above: Performed By: #### L 501.4021, L100.0100, L500.2500 #### [facility] [address] [place], [address] MCHC (RBC) [Mass/Vol] 35.7 g/dL Normal 32-36 [facility] Comment on above: Performed By: #### L 501.4021, L100.0100, L500.2500 #### [facility] [address] [place], [address] MCV (RBC) [Entitic vol] 80.8 fL Low 81-99 [facility] Comment on above: Performed By: #### L 501.4021, L100.0100, L500.2500 #### [facility] [address] [place], [address] Monocytes/100 WBC (Bld) 7.3 % Normal 0-10 [facility] Comment on above: Performed By: #### L 501.4021, L100.0100, L500.2500 #### [facility] [address] [place], [address] Neutrophils/100 WBC (Bld) 74.7 % High 47-70 [facility] Comment on above: Performed By: #### L 501.4021, L100.0100, L500.2500 #### [facility] [address] [place], [address] Nucleated RBC (Bld) [#/Vol] 0 10*3/uL Normal 0-5 [facility] Comment on above: Performed By: #### L 501.4021, L100.0100, L500.2500 #### [facility] [address] [place], [address] Platelet mean volume (Bld) [Entitic vol] 10.7 fL Normal 6.2-12.0 [facility] Comment on above: Performed By: #### L 501.4021, L100.0100, L500.2500 #### [facility] [address] [place], [address] Platelets (Bld) [#/Vol] 359 10*3/uL Normal 150-450 [facility] Comment on above: Performed By: #### L 501.4021, L100.0100, L500.2500 #### [facility] [address] [place], [address] RBC (Bld) [#/Vol] 4.64 10*6/uL Normal 4.2-5.4 [facility] Comment on above: Performed By: #### L 501.4021, L100.0100, L500.2500 #### [facility] [address] [place], [address] RDW SD 36.0 fl Normal 35.1-43.9 [facility] Comment on above: Performed By: #### L 501.4021, L100.0100, L500.2500 #### [facility] [address] [place], [address] WBC (Bld) [#/Vol] 10.7 10*3/uL Normal 4.4-11.0 [facility] Comment on above: Performed By: #### L 501.4021, L100.0100, L500.2500 #### [facility] [address] [place], [address] Carbon dioxide, total [Moles /volume] in Central venous bloodOrdered By: Rajesh Martinez on 10-28-2024 CO2 [Moles/Vol] 18.6 mmol/L Low 21.0-32.0 [facility] Chest PA and Lateralon 10-28 Chest PA and Lateral [facility] [address] [place] [address] Chest PA and Lateral MR#: [id number] Acct: [id number] Name: BIN CARRASCO Rep #: [id number] : 1985 F 39 From: Suzanne Bustos MD PCP: Dr. Mei Kathleen MD Status: [facility] ER Study: Chest PA and Lateral Date of Exam: 10/28/24 Exam# [id number] Ordering Dr: Rajesh Martinez DO PROCEDURE: CHEST PA AND LATERAL 10/28/2024 REASON FOR EXAM: CHEST PAIN TECHNIQUE: CHEST PA AND LATERAL COMPARISON: None. FINDINGS: LUNGS AND PLEURA: The lungs are clear. No pleural effusion or pneumothorax. HEART AND MEDIASTINUM: The heart size and mediastinal contours are normal. BONES: No acute osseous abnormality. RAD/Chest PA and Lateral IMPRESSION: NEGATIVE CHEST Reading Location: [id number] CC: Dr. Mei Kathleen MD; Dr. Rajesh Martinez DO Chief Maintenance Supervisor: Signed Normal [facility] Chloride assayOrdered By: Bonifacio Martinez on 10-28-2024 Chloride [Moles/Vol] 105 mmol/L 98-108 [facility] D-Dimer Quantitative (DVT/PE )on 10-28-2024 D-DIMER QUANT 0.27 FEU/ug/m Normal 0.27-0.49 [facility] Comment on above: Result Comment: NORM AL D-Dimer level (<0.50) indicates no DVT or PE. Performed By: #### L 300.8000 #### [facility] [address] [facility] [place], [address] Emergency Department Summary on 10-28-2024 Emergency Department Summary [facility] Medical Records Department [address] [place] [address] Emergency Department Summary 10/28/24 MR#: [id number] Acct: [id number] Name: BIN CARRASCO Rep #: [id number] : 1985 39 From: Rajesh Martinez DO PCP: Dr. Mei Kathleen MD Status:DEP ER Location: ED HPI History of Present Illness Chief Complaint: Chest Pain Informant: patient Onset/Context/Timing Onset: Days (5) Activity at onset: gradual Quality: Positive for Burning, Sharp and - (Pressure) Location: Left Chest and - (Lower EXTR right shoulder, right arm) Worsened By: Movement of Arm, Breathing and - (Certain positions and riding in a car) Relieved By: Nothing Associated Symptoms: Positive for Nausea, Vomiting, Dyspnea and Acid Reflux; Negative for Diaphoresis, Cough, Fever, Lightheadedness or Palpitations Narrative Narrative: Patient presents with chest pain that has been waxing and waning over the last 5 days. Patient states it is mainly over the right upper chest. Patient describes it as sharp and burning. Patient also admits to some pressure. Patient states her pain radiates down her right forearm to her forearm and wrist. Patient states it is worse with movement of her arm. Patient states it is worse with deep breathing. Patient reports it is worse with certain positions. Patient states that is also worse while riding in a car. Patient admits to some nausea and vomiting. Patient admits to some reflux symptoms. Patient elects to start dizziness. Patient states that the dizziness feels like it is a spinning sensation. CVD Risk Factors: Negative for Hypertension, Diabetes, Hypercholesterolemia, Family History 1' or Smoking PE Risk Factors: Negative for Recent Travel/Surgery, Recent Immobilization, Prior DVT or PE, Cancer or OCP + Smoking + >/=35 PFSH PFSH Medical History Anemia Gastric reflux History of echocardiogram Wears contact lenses Alcohol use Migraine headache Loss of consciousness History of ulceration Non-smoker Shortness of breath on exertion Hypotension Hx of Post concussion syndrome Abdominal pain Vertigo Bipolar disorder Insomnia IBS (irritable bowel syndrome) Stomach ulcer Acid reflux Anxiety Depression Home Medications ???Medication ???Instructions ???Recorded ???Last Taken ???Type trazodone 50 mg tablet 125 mg PO QHS 05/15/19 10/16/23 Hi story etonogestrel 0.12 mg-ethinyl 0.12 vag ring vaginal DAILY 10/16/23 History estradiol 0.015 mg/24 hr vaginal ring (NuvaRing) famotidine 20 mg tablet 20 mg PO BID #60 tabs 05/10/23 Rx propranolol 10 mg tablet 10 mg PO BID PRN PRN anxiety 07/2610/16/23 History plecanatide 3 mg tablet (Trulance) 3 mg PO DAILY #90 tabs 05/23/24 Unknown Rx hydrocodone-acetaminophen 5-325mg 1 tab PO Q6H PRN PRN Pain 3 days 10/28/24 Unknown Rx 5mg-325mg #10 TABLETS meloxicam 15 mg tablet 15 mg PO DAILY #10 tabs 10/28/24 U nknown Rx Allergy/AdvReac Type Severity Reaction Status Date / Time No Known Allergies Allergy Verified 10/28/24 13:55 Family History Mother Breast cancer Anemia Anxiety Hyperlipidemia Arthritis Hypertension Father Diabetes Colon cancer Hyperlipidemia Arthritis Hypertension Grandmother Anemia Arthritis Cancer Hypertension Surgical History History of esophagogastroduodenoscopy (EGD) Social History Smoking Status: Never smoker alcohol intake: current ROS ROS ED Constitutional Constitutional ED: Denies chills or fever(s) Eyes Eyes: Denies blurry vision or change in vision ENT ENT ED: Denies rhinorrhea or sore throat Cardiovascular Cardiovascular: Reports chest pain; Denies palpitations Respiratory/Chest Respiratory/Chest: Reports dyspnea; Denies cough Gastrointestinal Gastrointestinal: Reports nausea and vomiting; Denies abdominal pain Genitourinary Genitourinary ED: Denies dysuria or hematuria Musculoskeletal Musculoskeletal: Reports back pain and neck pain Integumentary Denies abscess or rash Neurologic Neurologic: Denies headache(s) or weakness Allergic/Immunologic Allergic/Immunologic ED: Denies mouth swelling or urticaria EXAM Physical Exam Const Vital Signs: 10/28/24 13:53 10/28/24 14:12 10/28/24 14:53 Temperature 98.2 F Temperature Source Oral Pulse Rate 95 90 Respiratory Rate 18 12 Respiratory Effort Normal Non-Labored Blood Pressure 144/84 H 143/104 H Blood Pressure Mean 104 117 Pulse Ox 96 99 Oxygen Delivery Method Room Air Room Air 10/28/24 15:00 10/28/24 15:00 10/28/24 16:00 Tem (more content not included)... Normal [facility] Eosinophil percentageOrdered By: Rajesh Martinez on 10-28-2024 Eosinophils/100 WBC (Bld) 1.0 % 0-5 [facility] Erythrocyte distribution wid th ratioOrdered By: Rajesh Martinez on 10-28-2024 Erythrocyte distribution width (RBC) [Ratio] 12.4 % 11.6-14.6 [facility] Erythrocyte distribution wid th standard deviationOrdered By: Rajesh Martinez on 10-28-2024 Erythrocyte distribution width (RBC) [Ratio] 36.0 fl 35.1-43.9 [facility] Glomerular filtration rate ( GFR) estimation/1.73 sq m using serum, plasma, or whole bOrdered By: Rajesh Martinez on 10-28-2024 GFR/1.73 sq M.predicted among non-blacks MDRD (S/P/Bld) [Vol rate/Area] 111 mL/min/{1.73_m2} >60 [facility] Comment on above: mL/min/1.73m2 CKD-EP I Creatinine Equation (2020) Hematocrit Auto (Bld) [Volum e fraction]Ordered By: Rajesh Martinez on 10-28-2024 Hematocrit (Bld) [Volume fraction] 37.5 % 37-47 [facility] Hemoglobin measurementOrdere d By: Rajesh Martinez on 10-28-2024 Hemoglobin (Bld) [Mass/Vol] 13.4 g/dL 12.0-15.0 [facility] Immature granulocytes/100 WB C Auto (Bld)Ordered By: Rajesh Martinez on 10-28-2024 Immature granulocytes/100 WBC (Bld) 0.400 % 0.0-0.9 [facility] Comment on above: IG% - Immature Granu locytes (promyelocytes, myelocytes and metamyelocytes) > 1% indicates that a LEFT SHIFT is Present. L501.4021on 10-28-2024 Trop T High Sen 8 ng/L Normal <=14 [facility] Comment on above: Performed By: #### L 501.4021, L100.0100, L500.2500 #### [facility] [address] [place], [place], [id number] MCV (mean corpuscular volume ) determinationOrdered By: Rajesh Martinez on 10-28-2024 MCV (RBC) [Entitic vol] 80.8 fL Low 81-99 [facility] Mean corpuscular hemoglobin (MCH) determinationOrdered By: Rajesh Martinez on 10-28-2024 MCH (RBC) [Entitic mass] 28.9 pg 27.0-32.0 [facility] Mean corpuscular hemoglobin concentration (MCHC) determinationOrdered By: Rajesh Martinez on 10-28-2024 MCHC (RBC) [Mass/Vol] 35.7 g/dL 32-36 [facility] Mean platelet volume determi nationOrdered By: Rajesh Martinez on 10-28-2024 Platelet mean volume (Bld) [Entitic vol] 10.7 fL 6.2-12.0 [facility] Monocyte percentageOrdered B y: Rajesh Martinez on 10-28-2024 Monocytes/100 WBC (Bld) 7.3 % 0-10 [facility] Neutrophil percentageOrdered By: Rajesh Martinez on 10-28-2024 Neutrophils/100 WBC (Bld) 74.7 % High 47-70 [facility] Nucleated red blood cell per centageOrdered By: Rajesh Martinez on 10-28-2024 Nucleated RBC/100 WBC (Bld) [Ratio] 0 % 0-5 [facility] Platelet countOrdered By: Bonifacio Martinez on 10-28-2024 Platelets (Bld) [#/Vol] 359 10*3/uL 150-450 [facility] Potassium measurement (mass/ volume)Ordered By: Rajesh Martinez on 10-28-2024 Potassium (Unsp spec) [Mass/Vol] 3.3 mmol/L 3.3-5.1 [facility] RBC Auto (Bld) [#/Vol]Ordere d By: Rajesh Martinez on 10-28-2024 RBC (Bld) [#/Vol] 4.64 10*6/uL 4.2-5.4 [facility] Serum creatinine measurement (mass/volume)Ordered By: Rajesh Martinez on 10-28-2024 Creatinine [Mass/Vol] 0.70 mg/dL 0.70-1.20 [facility] Serum glucose measurement (m ass/volume)Ordered By: Rajesh Martinez on 10-28-2024 Glucose [Mass/Vol] 110 mg/dL High 70-99 [facility] Serum or plasma calcium reilly urement (mass/volume)Ordered By: Rajesh Martinez on 10-28-2024 Calcium [Mass/Vol] 9.7 mg/dL 7.6-11.0 [facility] Serum or plasma urea nitroge n measurement (mass/volume)Ordered By: Rajesh Martinez on 10-28-2024 Urea nitrogen [Mass/Vol] 8 mg/dL 4-19 [facility] Sodium levelOrdered By: Rajesh Martinez on 10-28-2024 Sodium [Moles/Vol] 138 mmol/L 133-145 [facility] Troponin T HS 2 HRon 025 Trop T High Sen < 6 Normal <=14 [facility] Comment on above: Performed By: #### L 499.0042 #### [facility] [address] [place], [place], [address] Troponin T HS 4 HRon 025 Trop T High Sen Normal <=14 [facility] Comment on above: Result Comment: Canc elled via OM: Order cancelled - Patient discharged Performed By: #### L 499.0043 #### [facility] [address] [place], [address] Troponin T.cardiac [Mass/vol ume] in Serum or Plasma by High sensitivity methodOrdered By: Rajesh Martinez on 10-28-2024 Troponin T.cardiac High sensitivity method [Mass/Vol] < 6 ng/L <14 [facility] Troponin T.cardiac High sensitivity method [Mass/Vol] 8 ng/L <14 [facility] White blood cell (WBC) count Ordered By: Rajesh Martinez on 10-28-2024 WBC (Bld) [#/Vol] 10.7 10*3/uL 4.4-11.0 [facility] CNOVon 10-16-2024 CNOV Office Visit (PSYLWM ) BIN CARRASCO ([id number]) 1985 F Date Time Provider Department 10/16/24 10:00 AM BAKARI JAMES PSYLWM During your visit today, we recorded the following information about you: Bakari James, PhD 10/16/2024 12:04 PM Signed [facility] Progress Note Bin Carrasco 10/16/2024 [id number] PROVIDER: Bakari James, PhD CPT Code: Time: 50 minutes Setting: Patient seen in person Parties Present: Patient Treatment Modality/Interventions: Cognitive Behavioral Reassurance/Supportive Insight oriented Problem solving Processing of emotions Communication skills training Assertiveness training Psychoeducation MENTAL STATUS: Mood: variable, anxious Affect: mood-congruent Thoughts/Associations:goal directed Suicidal/Homicidal Ideation: None expressed or evidenced Other Prominent Symptoms: Therapy Focus/Content of Session: Self-care, Stress management, Mood/affect regulation, and Self-esteem Yarely is soon to complete independent licensure but a glitch and a delay along w needing to reapply and more $ Her office has become noisy and she feels isolated along w no windows ISSUE: she has a lease through 2027 and Alejandro Gallardo wont let her out of it so he is listing it to transfer to someone else but that might take quite a while she is looking for a larger space and he practice is going ok ISSUE: she can get lost in day to day money in spite of the overall yearly income is fine PLAN: intentionally refocus when distressed on the big picture ISSUE: the pile of things including uncertainties about office and husbands plans as he completes schooling etc Currently she has a need to shift to making clearer evaluations and decisions about which clients are not a good match.... easily feeling she ought to be able to help EVERYONE.. PLAN: SHE is getting better at this and starting to savor making sooner better decisions vs lost in I can do it all MEDICATIONS: Per medical record: Current Outpatient Medications Medication Sig benzonatate (TESSALON PERLE) 100 mg capsule Take 1 capsule by mouth three times daily as needed for Cough. NUVARING 0.12-0.015 mg/24 hr vaginal ring No current facility-administered medications for this visit. Psychiatric Medication Issues: No change from previous appointment DIAGNOSIS: [place] I: Anxiety and Depression Autism ADHD sensory issues weight issues r/o PTSD [place] II: deferred [place] III: see med notes [place] IV: trauma [place] V: 55-70 TREATMENT PROGRESS/ASSESSMENT: Progressing satisfactorily. TREATMENT PLAN/GOALS: Continue in therapy focusing on self-care, improving communication, stress management, affect management, and self-esteem. Next appointment: as scheduled Bakari James, PhD Referring Provider: BAKARI JAMES [[id number]] Allergies As of Date: 10/16/2024 Noted Allergy Reaction horses [Other] 12/16/2007 4 - Hives POLLEN 12/16/2007 4 - Hives Comments: shellfish, raw potatoes, grasses. 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 - NUVARING 0.12-0.015 mg/24 hr vaginal ring Problem List As Of Date 10/16/2024 Noted Resolved INITIATE CONTRACEPT NEC [Z30.09] 12/16/2007 12/16/2007 DYSMENORRHEA [N94.6] 12/16/2007 IRREGULAR MENSTRUATION [N92.6] 12/16/2007 CONTRACEPTIVE MANGMT NEC [Z30.09] 12/16/2007 Mastodynia [N64.4] 08/24/2009 PTSD (post-traumatic stress disorder) [F43.10] 09/29/2014 Recurrent major depressive disorder, in partial*05/21/2015 Encounter Status:Closed by BAKARI JAMES on 10/16/24 [facility] CNOVon 07-24-2024 CNOV Office Visit (PSYLWM ) BIN CARRASCO ([id number]) 1985 [facility] Date Time Provider Department 07/24/24 11:00 AM BAKARI JAMSE PSYLWM During your visit today, we recorded the following information about you: Bakari James, PhD 07/24/2024 12:14 PM Signed [facility] Progress Note Bin Carrasco 07/24/2024 [id number] PROVIDER: Bakari James, PhD CPT Code: Time: 50 minutes Setting: Patient seen in person Parties Present: Patient Treatment Modality/Interventions: Cognitive Behavioral Reassurance/Supportive Insight oriented Problem solving Processing of emotions Communication skills training Psychoeducation MENTAL STATUS: Mood: variable, anxious, fearful Affect: mood-congruent Thoughts/Associations:goal directed Suicidal/Homicidal Ideation: None expressed or evidenced Other Prominent Symptoms: Therapy Focus/Content of Session: Self-care, Stress management, Mood/affect regulation, Family relationships, and Self-esteem FEAR: now with Silver's mom in [facility] and they paying on that also her mom lives w them and hasnt been paying her way son has a full ride and pays his way her one horse left costs to keep she may be able to lease it to pay its way and she could still ride it the fear she thinks, comes from being afraid finances will be lost when she is old and living in a box staring at an empty pill bottle Intellectually she doesnt think so but guilt and shame and fear seem to intrude periodically PLAN: off w Silver to [place] with finances in hand and decide how best to proceed along w clarifying what her mom needs to cough up perhaps 2x a month to keep her on track Anxiety: money and future when old seem central PLAN: ride which leads her to feel peaceful and clarify the finances vs worrying about them WEIGHT: she has been losing ... from 190 to now 160 and goal 125 or so MEDICATIONS: Per medical record: Current Outpatient Medications Medication Sig benzonatate (TESSALON PERLE) 100 mg capsule Take 1 capsule by mouth three times daily as needed for Cough. NUVARING 0.12-0.015 mg/24 hr vaginal ring No current facility-administered medications for this visit. Psychiatric Medication Issues: No change from previous appointment DIAGNOSIS: [place] I: Anxiety and Depression Autism ADHD sensory issues weight issues r/o PTSD [place] II: deferred [place] III: see med notes [place] IV: trauma [place] V: 55-70 TREATMENT PROGRESS/ASSESSMENT: Progressing satisfactorily. TREATMENT PLAN/GOALS: Continue in therapy focusing on self-care, interpersonal relationships, improving communication, stress management, affect management, anxiety management, and self-esteem. Next appointment: as scheduled Bakari James, PhD Allergies As of Date: 07/24/2024 Noted Allergy Reaction horses [Other] 12/16/2007 4 - Hives POLLEN 12/16/2007 4 - Hives Comments: shellfish, raw potatoes, grasses. 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 - NUVARING 0.12-0.015 mg/24 hr vaginal ring Problem List As Of Date 07/24/2024 Noted Resolved INITIATE CONTRACEPT NEC [Z30.09] 12/16/2007 12/16/2007 DYSMENORRHEA [N94.6] 12/16/2007 IRREGULAR MENSTRUATION [N92.6] 12/16/2007 CONTRACEPTIVE MANGMT NEC [Z30.09] 12/16/2007 Mastodynia [N64.4] 08/24/2009 PTSD (post-traumatic stress disorder) [F43.10] 09/29/2014 Recurrent major depressive disorder, in partial*05/21/2015 Encounter Status:Closed by BAKARI JAMES on 07/24/24 Normal [facility] CNOVon 07-10-2024 CNOV Office Visit (PSYLWM ) BIN CARRASCO ([id number]) 1985 F Date Time Provider Department 07/10/24 11:00 AM BAKARI JAMES PSYLWM During your visit today, we recorded the following information about you: Bakari James, PhD 07/10/2024 12:05 PM Signed [facility] Progress Note Bin Carrasco 07/10/2024 [id number] PROVIDER: Bakari James, PhD CPT Code: Time: 50 minutes Setting: Patient seen in person Parties Present: Patient Treatment Modality/Interventions: Cognitive Behavioral Reassurance/Supportive Insight oriented Problem solving Processing of emotions Psychoeducation MENTAL STATUS: Mood: variable, anxious Affect: mood-congruent Thoughts/Associations:goal directed Suicidal/Homicidal Ideation: None expressed or evidenced Other Prominent Symptoms: Therapy Focus/Content of Session: Self-care, Stress management, Mood/affect regulation, and Self-esteem 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: her Silver is working on a masters in Social Work at [employer] Their son is starting College and live at home in the Fall ISSUE: both are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 TWIN HERNANDEZ [facility] [place] XR ELBOW MINIMUM 3 VIEWS LEF Ton 12-11-2020 XR ELBOW MINIMUM 3 VIEWS LEFT ORIGINAL EXAMINATION: THREE XRAY VIEWS OF THE LEFT ELBOW 12/11/2020 7:15 pm COMPARISON: Left forearm x-ray same day. HISTORY: ORDERING SYSTEM PROVIDED HISTORY: Reason for Exam: pain Fall from horse. FINDINGS: No acute fracture or dislocation. The anterior humeral line and radiocapitellar line are intact. No evidence of joint effusion. No significant soft tissue swelling. No radiopaque foreign bodies. IMPRESSION: No evidence of acute fracture or dislocation. I have personally reviewed the images of this examination and agree with the resident's findings and interpretation. Interpreted by: Tomer Alfaro Preliminary Report By: Junito Marina Electronically signed By Tomer Alfaro Dictated Date: 12/11/2020 8:51:30 PM Prelim Date: 12/11/2020 8:54:33 PM Sign Date: 12/11/2020 8:57:06 PM Ordering Provider: TWIN Garcia [facility] [place] XR FOREARM 2 VIEWS LEFTon XR FOREARM 2 VIEWS LEFT ORIGINAL EXAMINATION: TWO XRAY VIEWS OF THE LEFT FOREARM 12/11/2020 4:08 pm COMPARISON: None. HISTORY: ORDERING SYSTEM PROVIDED HISTORY: Reason for Exam: pain Fall from horse. Unable to supinate hand. FINDINGS: Exam is limited due to patient positioning. A radiopaque bracelet obscures the distal ulna and radius. No acute fracture identified. There is suspected posterior subluxation of the radial head. The distal articulation appears intact. Cannot exclude an elbow joint effusion. IMPRESSION: Exam limited due to patient positioning. Suspected posterior subluxation of the radial head. No acute fracture identified. I have personally reviewed the images of this examination and agree with the resident's findings and interpretation. Interpreted by: Tomer Alfaro Preliminary Report By: Junito Marina Electronically signed By Tomer Alfaro Dictated Date: 12/11/2020 4:17:24 PM Prelim Date: 12/11/2020 4:23:27 PM Sign Date: 12/11/2020 4:50:58 PM Ordering Provider: TWIN HERNANDEZ [facility] [place] XR HAND MINIMUM 3 VIEWS LEFT on 12-11-2020 XR HAND MINIMUM 3 VIEWS LEFT ORIGINAL EXAMINATION: THREE XRAY VIEWS OF THE LEFT HAND12/11/2020 7:16 pm HAND 3 VIEWS LEFT COMPARISON: None HISTORY: ORDERING SYSTEM PROVIDED HISTORY: Reason for Exam: pain FINDINGS: No acute fracture or dislocation is identified. The joint spaces are maintained. Metallic ring projects over the 4th proximal phalanx. IMPRESSION: No current evidence of fracture. If there is persistent pain, recommend repeat radiographs in 7-10 days to exclude fracture. Interpreted by: Tomer Alfaro Preliminary Report By: Tomer Alfaro Electronically signed By Tomer Alfaro Dictated Date: 12/11/2020 7:37:58 PM Prelim Date: 12/11/2020 7:39:43 PM Sign Date: 12/11/2020 7:39:43 PM Ordering Provider: TWIN HERNANDEZ [facility] [place]R SHOULDER MINIMUM 2 VIEWS LEFTon 12-11-2020 XR SHOULDER MINIMUM 2 VIEWS LEFT ORIGINAL EXAMINATION: TWO XRAY VIEWS OF THE LEFT SHOULDER 12/11/2020 4:08 pm COMPARISON: None. HISTORY: ORDERING SYSTEM PROVIDED HISTORY: Reason for Exam: pain Fall from horse. Patient unable to move arm. FINDINGS: No acute fracture or dislocation. The acromioclavicular and coracoclavicular distances are maintained. The humeral head is appropriately seated within the glenoid. The included thoracic structures are unremarkable. Multiple small radiopaque foreign bodies are noted overlying the left mid thorax and the soft tissues of the left chest wall and upper extremity and are presumably external to the patient. Recommend clinical correlation. IMPRESSION: No acute fracture or dislocation. Attending addendum: Subtle cortical depression of the posterosuperior humeral head could suggest a small Hill-Sachs fracture on this portable radiographic series. No evidence of dislocation. Interpreted by: Tomer Alfaro Preliminary Report By: Junito Marina Electronically signed By Tomer Alfaro Dictated Date: 12/11/2020 4:13:37 PM Prelim Date: 12/11/2020 4:17:12 PM Sign Date: 12/11/2020 4:26:11 PM Ordering Provider: TWIN HERNANDEZ [facility] [place] Vital Signs Date Time Vital Sign Value Performing Clinician Facility 10-28-2024 17:37-0400 Body temperature 98.2 [degF] Mei Kathleen MD Work Phone: [facility] 10-28-2024 17:37-0400 Diastolic blood pressure 78 mm[Hg] Mei Kathleen MD Work Phone: [facility] 10-28-2024 17:37-0400 Heart rate 85 /min Mei Kathleen MD Work Phone: [facility] 10-28-2024 17:37-0400 Respiratory rate 13 /min Mei Kathleen MD Work Phone: [facility] 10-28-2024 17:37-0400 SaO2% (BldA) [Mass fraction] 100 % Mei Kathleen MD Work Phone: [facility] 10-28-2024 17:37-0400 Systolic blood pressure 121 mm[Hg] Mei Kathleen MD Work Phone: [facility] 10-28-2024 13:53-0400 Body height 162.56 cm Mei Kathleen MD Work Phone: [facility] 10-28-2024 13:53-0400 Body mass index (BMI) [Ratio] 26.1 kg/m2 Mei Kathleen MD Work Phone: [facility] 10-28-2024 13:53-0400 Body weight 69.03 kg Mei Kathleen MD Work Phone: [facility] 04-20-2023 14:07-0500 Body height 162.[address] Loretta Nuno Work Phone: [facility] 04-20-2023 14:07-0500 Body mass index (BMI) [Ratio] 30.7 kg/m2 Dr. Loretta Nuno Work Phone: [facility] 04-20-2023 14:07-0500 Body temperature 97.6 [degF] Dr. Loretta Nuno Work Phone: [facility] 04-20-2023 14:07-0500 Body weight 81.[address] Loretta Nuno Work Phone: [facility] 04-20-2023 14:07-0500 Diastolic blood pressure 77 mm[Hg] Dr. Loretta Nuno Work Phone: [facility] 04-20-2023 14:07-0500 Heart rate 85 /min Dr. Loretta Nuno Work Phone: [facility] 04-20-2023 14:07-0500 Respiratory rate 16 /min Dr. Loretta Nuno Work Phone: [facility] 04-20-2023 14:07-0500 SaO2% (BldA) [Mass fraction] 98 % Dr. Loretta Nuno Work Phone: [facility] 04-20-2023 14:07-0500 Systolic blood pressure 123 mm[Hg] Dr. Loretta Nuno Work Phone: [facility] 02-28-2023 11:13-0500 Body mass index (BMI) [Ratio] 31.8 kg/m2 Dr. Loretta Nuno Work Phone: [facility] 02-28-2023 11:13-0500 Body temperature 102.5 [degF] Dr. Loretta Nuno Work Phone: [facility] 02-28-2023 11:13-0500 Body weight 81.[address] Loretta Nuno Work Phone: [facility] 02-28-2023 11:13-0500 Diastolic blood pressure 68 mm[Hg] Dr. Loretta Nuno Work Phone: [facility] 02-28-2023 11:13-0500 Heart rate 114 /min Dr. Loretta Nuno Work Phone: [facility] 02-28-2023 11:13-0500 Respiratory rate 16 /min Dr. Loretta Nuno Work Phone: [facility] 02-28-2023 11:13-0500 SaO2% (BldA) [Mass fraction] 97 % Dr. Loretta Nuno Work Phone: [facility] 02-28-2023 11:13-0500 Systolic blood pressure 130 mm[Hg] Dr. Loretta Nuno Work Phone: [facility] 09-20-2021 13:04-0400 Body temperature 97.7 [degF] Dr. Loretta Nuno Work Phone: [facility] Work Phone: 09-20-2021 13:04-0400 Diastolic blood pressure 61 mm[Hg] Dr. Loretta Nuno Work Phone: [facility] Work Phone: 09-20-2021 13:04-0400 Heart rate 61 /min Dr. Loretta Nuno Work Phone: [facility] Work Phone: 09-20-2021 13:04-0400 Respiratory rate 16 /min Dr. Loretta Nuno Work Phone: [facility] Work Phone: 09-20-2021 13:04-0400 SaO2% (BldA) [Mass fraction] 100 % Dr. Loretta Nuno Work Phone: [facility] Work Phone: 09-20-2021 13:04-0400 Systolic blood pressure 86 mm[Hg] Dr. Loretta Nuno Work Phone: [facility] Work Phone: 09-20-2021 11:35-0400 Body height 162.[address] Loretta Nuno Work Phone: [facility] Work Phone: 09-20-2021 11:35-0400 Body mass index (BMI) [Ratio] 27.6 kg/m2 Dr. Loretta Nuno Work Phone: [facility] Work Phone: 09-20-2021 11:35-0400 Body weight 73.[address] Loretta Nuno Work Phone: [facility] Work Phone: 08-16-2021 14:31-0400 Body height 162.[address] Loretta Nuno Work Phone: [facility] Work Phone: 08-16-2021 14:31-0400 Body mass index (BMI) [Ratio] 27.9 kg/m2 Dr. Loretta Nuno Work Phone: [facility] Work Phone: 08-16-2021 14:31-0400 Body weight 73.[address] Loretta Nuno Work Phone: [facility] Work Phone: 08-16-2021 14:31-0400 Diastolic blood pressure 64 mm[Hg] Dr. Loretta Nuno Work Phone: [facility] Work Phone: 08-16-2021 14:31-0400 Heart rate 81 /min Dr. Loretta Nuno Work Phone: [facility] Work Phone: 08-16-2021 14:31-0400 SaO2% (BldA) [Mass fraction] 99 % Dr. Loretta Nuno Work Phone: [facility] Work Phone: 08-16-2021 14:31-0400 Systolic blood pressure 111 mm[Hg] Dr. Loretta Nuno Work Phone: [facility] Work Phone: 08-16-2021 14:31-0400 Body height 162.[address] Loretta Nuno Work Phone: [facility] Work Phone: 08-16-2021 14:31-0400 Body mass index (BMI) [Ratio] 27.9 kg/m2 Dr. Loretta Nuno Work Phone: [facility] Work Phone: 08-16-2021 14:31-0400 Body weight 73.[address] Loretta Nuno Work Phone: [facility] Work Phone: 08-16-2021 14:31-0400 Diastolic blood pressure 64 mm[Hg] Dr. Loretta Nuno Work Phone: [facility] Work Phone: 08-16-2021 14:31-0400 Heart rate 81 /min Dr. Loretta Nuno Work Phone: [facility] Work Phone: 08-16-2021 14:31-0400 SaO2% (BldA) [Mass fraction] 99 % Dr. Loretta Nuno Work Phone: [facility] Work Phone: 08-16-2021 14:31-0400 Systolic blood pressure 111 mm[Hg] Dr. Loretta Nuno Work Phone: [facility] Work Phone: Encounters Encounter Date Encounter Type Care Provider Facility Start: 01-27-2025 ambulatory Mei Kathleen Facility:[facility] Start: 01-15-2025 End: 01-15-2025 ambulatory LORETTA LION Facility:[facility] Start: 12-18-2024 End: 12-18-2024 ambulatory LORETTA LION Facility:[facility] Start: 12-04-2024 End: 12-04-2024 ambulatory BAKARI JAMES Facility:[facility] Start: 10-28-2024 End: 10-28-2024 Emergency department patient visit Mei Kathleen MD Work Phone: -Emergency Department Work Phone: Start: 10-16-2024 End: 10-16-2024 ambulatory BAKARI JAMES Facility:[facility] Start: 07-24-2024 End: 07-24-2024 ambulatory LORETTA Gan LION Facility:[facility] Start: 07-10-2024 End: 07-10-2024 ambulatory LORETTA LION Facility:[facility] Start: 06-26-2024 End: 06-26-2024 ambulatory LORETTA LION Facility:[facility] Start: 06-12-2024 End: 06-12-2024 ambulatory LORETTA LION Facility:[facility] Start: 05-08-2024 End: 05-08-2024 ambulatory LORETTA LION Facility:[facility] Start: 04-20-2023 End: 04-20-2023 Emergency department patient visit Dr. Loretta Nuno Work Phone: [facility]-Emergency Department Work Phone: Start: 02-28-2023 End: 02-28-[address] Loretta Nuno Work Phone: [facility] Work Phone: Start: 09-20-2021 Non-patient / Non-visit Dr. Loretta Nuno Work Phone: [facility] Start: 09-20-2021 End: 09-20-2021 Admission to same day surgery center Dr. Loretta Nuno Work Phone: [facility]-Endoscopy Start: 08-16-2021 End: 08-16-[address] Loretta Nuno Work Phone: [facility]-Laboratory Start: 08-16-2021 End: 08-16-[address] Loretta Nuno Work Phone: [facility] Start: 07-15-2021 End: 07-15-[address] Loretta Nuno Work Phone: [facility] Start: 07-15-[address] Loretta Nuno Work Phone: [facility] Procedures Date Procedure Procedure Detail Performing Clinician Start: 10-28-2024 X-ray of chest, PA a nd lateral views Mei Kathleen MD Work Phone: Start: 10-28-2024 D-dimer assay, quantitative Mei Kathleen MD Work Phone: Comment on above: NORMAL D-Dimer level (<0.50) indicates no DVT or PE. Start: 10-28-2024 Estimated creatinine clearance Mei Kathleen MD Work Phone: Start: 04-20-2023 Plain X-ray of shoulder Dr. Loretta Nuno Work Phone: Start: 04-20-[address] Loretta iglesias Work Phone: Start: 04-20-2023 CT of head without contrast Dr. Loretta Nuno Work Phone: Start: 09-20-[address] Loretta iglesias Work Phone: Plan of Treatment Date Care Activity Detail Author Start: 10-28-2024 [facility] Start: 10-28-2024 [facility] Start: 04-20-2023 End: 04-20-2023 [facility] Start: 09-20-2021 Patient discharge [facility] Work Phone: CT Abdomen and Pelvi s W contrast IV [facility] Work Phone: Lactoferrin [Presenc e] in Stool by Immunoassay [facility] Work Phone: Patient Education [facility] Work Phone: Patient referral [facility] Work Phone: Protein measurement [facility] Work Phone: Payers Date Payer Category Payer Self-pay [id number] 2024 Private Health Insurance [facility] [id number] 2014 Private Health Insurance [id number] Private Health Insurance [employer] [facility] [id number] Unknown [id number] Unknown [id number] Social History Date Type Detail Facility Start: 08-16-2021 End: 04-20-2023 Tobacco smoking status NHIS Unknown if ever smoked [facility] Start: 1985 Sex Assigned At Female [facility] Start: 10-28-2024 Tobacco smoking stat us NHIS Never smoked tobacco (finding) [facility] Goals Date Patient Goal Desired Activity /State Mental Status Date Assessment Result Facility 10-28-2024 Cognitive function Voice/Name [facility] Work Phone: 09-20-2021 Cognitive function Voice/Name [facility] Work Phone: Clinical Notes 05-08-2024 to 01-15-2025 Note Date & Type Note Facility 01-15-2025 Note HNO ID: [id number] Author: BAKARI JAMES, PhD Service: ? Author Type: Psychologist Type: Progress Notes Filed: 01/15/2025 12:08 Note Text: [facility] Progress Note Bin Carrasco 01/15/2025 [id number] PROVIDER: Bakari James, PhD CPT Code: Time: 50 minutes Setting: Patient seen in person Parties Present: Patient Treatment Modality/Interventions: Cognitive Behavioral Reassurance/Supportive Insight oriented Problem solving Processing of emotions Psychoeducation MENTAL STATUS: Mood: variable, anxious Affect: mood-congruent Thoughts/Associations:goal directed Suicidal/Homicidal Ideation: None expressed or evidenced Other Prominent Symptoms: Therapy Focus/Content of Session: Self-care, Stress management, Mood/affect regulation, and Self-esteem POTS: working on clarity of what kind and what would be the tx Weight: she has been using GLP 1 compound and lost 70lbs this has also helped with ulcerative colitis so working to find a maintenance dose Son is considering clinical psychology and shift from Law PLAN: he might do both eventually and parents are encouraging of what draws him into life MOOD: generally stable with lots on the table practice: the old lease has not been taken over yet and she loves her new office space 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 NUVARING 0.12-0.015 mg/24 hr vaginal ring No current facility-administered medications for this visit. Psychiatric Medication Issues: No change from previous appointment DIAGNOSIS: [place] I: Anxiety and Depression Autism ADHD sensory issues weight issues POTS r/o PTSD [place] II: deferred [place] III: see med notes [place] IV: trauma [place] V: [id number] TREATMENT PROGRESS/ASSESSMENT: Progressing satisfactorily. TREATMENT PLAN/GOALS: Continue in therapy focusing on self-care, interpersonal relationships, stress management, affect management, anxiety management, and self-esteem. Next appointment: as scheduled Bakari James PhD [facility] 12-18-2024 Note HNO ID: [id number] Author: BAKARI JAMES, Service: ? Author Type: Psychologist Type: Progress Notes Filed: 12/18/2024 17:25 Note Text: [facility] Progress Note Bin Carrasco 12/18/2024 [id number] PROVIDER: Bakari James PhD CPT Code: Time: 50 minutes Setting: Patient seen in person Parties Present: Patient Treatment Modality/Interventions: Cognitive Behavioral Reassurance/Supportive Insight oriented Problem solving Processing of emotions Psychoeducation MENTAL STATUS: Mood: variable, anxious Affect: mood-congruent Thoughts/Associations:goal directed Suicidal/Homicidal Ideation: None expressed or evidenced Other Prominent Symptoms: Therapy Focus/Content of Session: Self-care, Mood/affect regulation, and Self-esteem Yarely has moved in and started seeing clients in her new office... bigger ... light and windows vs in the basement and can expand and be used also w her Mom lives w them and she had a sit down about expenses OUTCOME; everyone knows what they need to contribute now and the anxiety has diminished Her is not clear about next steps and since he has more schooling, his work peers are pushing him out he has been offered a teaching position at [employer] when he finishes school and wants also a private practice Son doing well and the household is more spacious and workable since he is away in spite of missing him financially..the old office is still under her responsibility but there are people interested that would lead to her exiting that expense plus her new office WEIGHT: she has shed the pounds and keeping them off MEDICATIONS: Per medical record: Current Outpatient Medications Medication Sig benzonatate (TESSALON PERLE) 100 mg capsule Take 1 capsule by mouth three times daily as needed for Cough. NUVARING 0.12-0.015 mg/24 hr vaginal ring No current facility-administered medications for this visit. Psychiatric Medication Issues: No change from previous appointment DIAGNOSIS: [place] I: Anxiety and Depression Autism ADHD sensory issues weight issues r/o PTSD [place] II: deferred [place] III: see med notes [place] IV: trauma [place] V: 55-70 TREATMENT PROGRESS/ASSESSMENT: Progressing satisfactorily. TREATMENT PLAN/GOALS: Continue in therapy focusing on self-care, affect management, and self-esteem. Next appointment: as scheduled Bakari James PhD [facility] 12-04-2024 Note HNO ID: [id number] Author: BAKAIR JAMES PhD Service: ? Author Type: Psychologist Type: Progress Notes Filed: 12/04/2024 12:16 Note Text: [facility] Progress Note Bin Carrasco 12/04/2024 [id number] PROVIDER: Bakari James PhD CPT Code: Time: 50 minutes Setting: Patient seen in person Parties Present: Patient Treatment Modality/Interventions: Cognitive Behavioral Reassurance/Supportive Insight oriented Problem solving Processing of emotions Psychoeducation MENTAL STATUS: Mood: variable, anxious Affect: mood-congruent Thoughts/Associations:goal directed Suicidal/Homicidal Ideation: None expressed or evidenced Other Prominent Symptoms: Therapy Focus/Content of Session: Self-care, Stress management, Mood/affect regulation, Self-esteem, and Coping with chronic illness POTS?: pt is being evaluated failed the tilt table etc. ... suggestion is that multiple concussions can lead to a form of POTS which she may have OVERWHELMED: She tends to say 'I can do it' and hold on to that and THEN crash as she gets over the finish line PLAN: awareness she does so and allow more attention to challenge but not overwhelm .. 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 we talked about how she can get defensive or reactive w other people's imposing realities PLAN: chain maker her own reality in a matter of fact way vs reactive or defensive MEDICATIONS: Per medical record: Current Outpatient Medications Medication Sig benzonatate (TESSALON PERLE) 100 mg capsule Take 1 capsule by mouth three times daily as needed for Cough. NUVARING 0.12-0.015 mg/24 hr vaginal ring No current facility-administered medications for this visit. Psychiatric Medication Issues: see med record DIAGNOSIS: [place] I: Anxiety and Depression Autism ADHD sensory issues weight issues r/o PTSD [place] II: deferred [place] III: see med notes [place] IV: trauma [place] V: 55-70 TREATMENT PROGRESS/ASSESSMENT: Progressing satisfactorily. TREATMENT PLAN/GOALS: Continue in therapy focusing on self-care, assertiveness skills, stress management, affect management, anxiety management, and self-esteem. Next appointment: as scheduled Bakari James, PhD [facility] 10-28-2024 Radiology Diagnostic study note [facility] [address] [place] [address] Chest PA and Lateral MR#: [id number] Acct: [id number] Name: BIN CARRASCO Rep #: [id number] : 1985 F 39 From: Ambika Bustos MD PCP: Dr. Mei Kathleen MD Status: REG ER Study:Chest PA and Lateral Date of Exam: 10/28/24 Exam# [id number] Ordering Dr: Rajesh Martinez DO PROCEDURE: CHEST PA AND LATERAL 10/28/2024 REASON FOR EXAM: CHEST PAIN TECHNIQUE: CHEST PA AND LATERAL COMPARISON: None. FINDINGS: LUNGS AND PLEURA: The lungs are clear. No pleural effusion or pneumothorax. HEART AND MEDIASTINUM: The heart size and mediastinal contours are normal. BONES: No acute osseous abnormality. RAD/Chest PA and Lateral IMPRESSION: NEGATIVE CHEST Reading Location: [facility] CC: Dr. Mei Kathleen MD; Dr. Rajesh Martinez, DO ~ Chief Maintenance Supervisor: Signed [facility] 10-16-2024 Note HNO ID: [id number] Author: BAKARI JAMES, PhD Service: ? Author Type: Psychologist Type: Progress Notes Filed: 10/16/2024 12:04 Note Text: [facility] Progress Note Bin Carrasco 10/16/2024 [id number] PROVIDER: Bakari James, PhD CPT Code: Time: 50 minutes Setting: Patient seen in person Parties Present: Patient Treatment Modality/Interventions: Cognitive Behavioral Reassurance/Supportive Insight oriented Problem solving Processing of emotions Communication skills training Assertiveness training Psychoeducation MENTAL STATUS: Mood: variable, anxious Affect: mood-congruent Thoughts/Associations:goal directed Suicidal/Homicidal Ideation: None expressed or evidenced Other Prominent Symptoms: Therapy Focus/Content of Session: Self-care, Stress management, Mood/affect regulation, and Self-esteem Yarely is soon to complete independent licensure but a glitch and a delay along w needing to reapply and more $ Her office has become noisy and she feels isolated along w no windows ISSUE: she has a lease through 2027 and Alejandro Gallardo wont let her out of it so he is listing it to transfer to someone else but that might take quite a while she is looking for a larger space and he practice is going ok ISSUE: she can get lost in day to day money in spite of the overall yearly income is fine PLAN: intentionally refocus when distressed on the big picture ISSUE: the pile of things including uncertainties about office and husbands plans as he completes schooling etc Currently she has a need to shift to making clearer evaluations and decisions about which clients are not a good match.... easily feeling she ought to be able to help EVERYONE.. PLAN: SHE is getting better at this and starting to savor making sooner better decisions vs lost in I can do it all MEDICATIONS: Per medical record: Current Outpatient Medications Medication Sig benzonatate (TESSALON PERLE) 100 mg capsule Take 1 capsule by mouth three times daily as needed for Cough. NUVARING 0.12-0.015 mg/24 hr vaginal ring No current facility-administered medications for this visit. Psychiatric Medication Issues: No change from previous appointment DIAGNOSIS: [place] I: Anxiety and Depression Autism ADHD sensory issues weight issues r/o PTSD [place] II: deferred [place] III: see med notes [place] IV: trauma [place] V: 55-70 TREATMENT PROGRESS/ASSESSMENT: Progressing satisfactorily. TREATMENT PLAN/GOALS: Continue in therapy focusing on self-care, improving communication, stress management, affect management, and self-esteem. Next appointment: as scheduled Bakari James PhD [facility] 07-24-2024 Note HNO ID: [id number] Author: BAKARI JAMES, PhD Service: ? Author Type: Psychologist Type: Progress Notes Filed: 07/24/2024 12:14 Note Text: [facility] Progress Note Bin Mulligan Danilo 07/24/2024 [id number] PROVIDER: Bakari James, PhD CPT Code: Time: 50 minutes Setting: Patient seen in person Parties Present: Patient Treatment Modality/Interventions: Cognitive Behavioral Reassurance/Supportive Insight oriented Problem solving Processing of emotions Communication skills training Psychoeducation MENTAL STATUS: Mood: variable, anxious, fearful Affect: mood-congruent Thoughts/Associations:goal directed Suicidal/Homicidal Ideation: None expressed or evidenced Other Prominent Symptoms: Therapy Focus/Content of Session: Self-care, Stress management, Mood/affect regulation, Family relationships, and Self-esteem FEAR: now with Silver's mom in [facility] and they paying on that also her mom lives w them and hasnt been paying her way son has a full ride and pays his way her one horse left costs to keep she may be able to lease it to pay its way and she could still ride it the fear she thinks, comes from being afraid finances will be lost when she is old and living in a box staring at an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
== END | disposition home or self-care (01) ==
PROVIDERS: PCP Family Medicine; Referring Provider Family Medicine; Visit Provider Family Medicine
DX: I95.1 Orthostatic hypotension (principal)
CPT/HCPCS: 36415; 80053; 84703; 85027; 93660; A4216